=== PATIENT | male | born 1970 | race Caucasian/White ===

== ENCOUNTER → 2019-08-22 | Outpatient (CLI) | payer OTHER, MEDICARE ==
[2019-08-22 17:58] LABS: ALANINE AMINOTRANSFERASE 23 U/L (0-55); ALBUMIN 4.4 GM/DL (3.2-4.5); ALKALINE PHOSPHATASE 82 U/L (40-136); BILIRUBIN,TOTAL 0.4 MG/DL (0.1-1.0); BUN/CREATININE RATIO 13; CALCIUM 10.2 MG/DL (8.5-10.1); CARBON DIOXIDE 26 MMOL/L (21-32); CHLORIDE 93 MMOL/L (98-107); CREATININE SERUM 0.88 MG/DL (0.60-1.30); GFR ESTIMATED > 60; GLUCOSE 103 MG/DL (70-105); POTASSIUM 3.1 MMOL/L (3.6-5.0); SODIUM 135 MMOL/L (135-145); TOTAL PROTEIN 8.5 GM/DL (6.4-8.2)
[2019-08-22 17:59] LABS: HEMOGLOBIN 14.8 G/DL (13.3-17.7); MEAN CORPUSCULAR HEMOGLOBIN 29 PG (25-34); WHITE BLOOD COUNT 11.4 10^3/uL (4.3-11.0)
[2019-08-22 18:00] LABS: BASOPHILS # (AUTO) 0.1 10^3/uL (0.0-0.1); BASOPHILS % (AUTO) 1 % (0-10); EOSINOPHILS # (AUTO) 0.3 10^3/uL (0.0-0.3); EOSINOPHILS % (AUTO) 2 % (0-10); HEMATOCRIT 41 % (40-54); LYMPHOCYTES # (AUTO) 2.4 X 10^3 (1.0-4.0); LYMPHOCYTES % (AUTO) 21 % (12-44); MEAN CORPUSCULAR HGB CONC 36 G/DL (32-36); MEAN CORPUSCULAR VOLUME 81 FL (80-99); MEAN PLATELET VOLUME 8.8 FL (7.4-10.4); MONOCYTES # (AUTO) 0.8 X 10^3 (0.0-1.0); MONOCYTES % (AUTO) 7 % (0-12); NEUTROPHILS # (AUTO) 7.9 X 10^3 (1.8-7.8); NEUTROPHILS % (AUTO) 69 % (42-75); PLATELET COUNT 333 10^3/uL (130-400); RED CELL DISTRIBUTION WIDTH 12.1 % (10.0-14.5)
== END ==
LOC: LAB FS 16:26
PROVIDERS: ATTEND Nurse Practitioner Family
DX: E83.42 Hypomagnesemia (principal); R10.9 Unspecified abdominal pain
CPT/HCPCS: 36415; 80053; 83735; 85025

== ENCOUNTER → 2019-09-06 | Outpatient (CLI) | payer OTHER, MEDICARE ==
[2019-09-06 14:29] LABS: HEMOGLOBIN 13.7 G/DL (13.3-17.7); MEAN PLATELET VOLUME 8.9 FL (7.4-10.4); RED CELL DISTRIBUTION WIDTH 12.6 % (10.0-14.5); WHITE BLOOD COUNT 10.3 10^3/uL (4.3-11.0)
[2019-09-06 14:32] LABS: BILIRUBIN,URINE NEGATIVE (NEGATIVE); CLARITY,URINE CLEAR; COLOR,URINE YELLOW; GLUCOSE, URINE (UA) NEGATIVE (NEGATIVE); KETONES,URINE NEGATIVE (NEGATIVE); LEUKOCYTE ESTERASE ,URINE NEGATIVE (NEGATIVE); NITRITE,URINE NEGATIVE (NEGATIVE); PH,URINE 7.5 (5-9); PROTEIN,URINE NEGATIVE (NEGATIVE)
[2019-09-06 14:44] LABS: BACTERIA,URINE NEGATIVE /HPF; SQUAMOUS EPITHELIAL CELL,UR RARE /HPF
[2019-09-06 14:50] LABS: ALBUMIN 4.4 GM/DL (3.2-4.5); BUN/CREATININE RATIO 9; CALCIUM 9.7 MG/DL (8.5-10.1); CARBON DIOXIDE 26 MMOL/L (21-32); CHLORIDE 96 MMOL/L (98-107); CREATININE SERUM 0.88 MG/DL (0.60-1.30); GFR ESTIMATED > 60; GLUCOSE 102 MG/DL (70-105); MAGNESIUM 1.5 MG/DL (1.6-2.4); PHOSPHORUS 3.3 MG/DL (2.3-4.7); POTASSIUM 2.7 MMOL/L (3.6-5.0); SODIUM 136 MMOL/L (135-145); URIC ACID 4.8 MG/DL (2.6-7.2)
[2019-09-06 14:53] LABS: URINE CREATININE FOR RATIO 22 MG/DL (30-125); URINE PROTEIN FOR RATIO ONLY < 6 MG/DL (6-12)
--- NOTE | 2019-09-06 14:53 | Diagnostic Imaging Report ---
PROCEDURE: US Renal Bilateral. TECHNIQUE: Multiple real-time grayscale images were obtained over the kidneys in various projections bilaterally. INDICATION: Chronic kidney disease stage III. FINDINGS: Right kidney measures 11.4 x 6.1 x 6.9 cm and the left kidney measures 12.6 x 4.9 x 5.1 cm. Cortical thickness and echogenicity is normal. No calculi or hydronephrosis is seen. Prevoid bladder volume is 153 mL. Post void volume is 18 mL. Bilateral ureteral jets were visualized. IMPRESSION: Unremarkable renal and bladder ultrasound. Dictated by: Dictated on workstation # [id number]
[2019-09-06 14:56] LABS: PROTHROMBIN TIME PATIENT 13.6 SEC (12.2-14.7)
[2019-09-06 21:31] LABS: HEPATITIS C ANTIBODY C Non-Reactive (Non-Reactive)
== END ==
LOC: RAD 13:27
PROVIDERS: ATTEND Internal Medicine Nephrology
DX: N18.3 Chronic kidney disease, stage 3 (moderate) (principal); E87.70 Fluid overload, unspecified; N25.89 Other disorders resulting from impaired renal tubular function
CPT/HCPCS: 36415; 76770; 80069; 80074; 81000; 82306; 82570; 83036; 83735; 83970; 84156; 84550; 85027; 85610; 85652; 85730; 86021; 86038; 86039; 86141; 86160; 87088

== ENCOUNTER → 2019-09-20 | Outpatient (CLI) | payer OTHER, MEDICARE | LOC: RAD 13:00 | PROVIDERS: ATTEND Student in an Organized Health Care Education/Training Program | DX: R06.01 Orthopnea (principal) | CPT/HCPCS: 93306 ==

== ENCOUNTER → 2020-02-21 | Outpatient (CLI) | payer OTHER, MEDICARE ==
[2020-02-21 14:46] LABS: BASOPHILS # (AUTO) 0.1 10^3/uL (0.0-0.1); BASOPHILS % (AUTO) 1 % (0-10); EOSINOPHILS # (AUTO) 0.1 10^3/uL (0.0-0.3); EOSINOPHILS % (AUTO) 1 % (0-10); HEMATOCRIT 41 % (40-54); LYMPHOCYTES # (AUTO) 2.3 X 10^3 (1.0-4.0); LYMPHOCYTES % (AUTO) 23 % (12-44); MEAN CORPUSCULAR HEMOGLOBIN 29 PG (25-34); MEAN CORPUSCULAR HGB CONC 37 G/DL (32-36); MEAN CORPUSCULAR VOLUME 80 FL (80-99); MONOCYTES # (AUTO) 0.6 X 10^3 (0.0-1.0); MONOCYTES % (AUTO) 6 % (0-12); NEUTROPHILS # (AUTO) 6.9 X 10^3 (1.8-7.8); NEUTROPHILS % (AUTO) 69 % (42-75); PLATELET COUNT 308 10^3/uL (130-400); RED CELL DISTRIBUTION WIDTH 13.7 % (10.0-14.5)
[2020-02-21 14:47] LABS: BILIRUBIN,URINE NEGATIVE (NEGATIVE); CLARITY,URINE CLEAR; COLOR,URINE YELLOW; GLUCOSE, URINE (UA) NEGATIVE (NEGATIVE); KETONES,URINE NEGATIVE (NEGATIVE); LEUKOCYTE ESTERASE ,URINE NEGATIVE (NEGATIVE); NITRITE,URINE NEGATIVE (NEGATIVE); PROTEIN,URINE NEGATIVE (NEGATIVE)
[2020-02-21 14:53] LABS: BACTERIA,URINE NEGATIVE /HPF; WBC,URINE RARE /HPF
[2020-02-21 14:54] LABS: SQUAMOUS EPITHELIAL CELL,UR RARE /HPF
[2020-02-21 15:08] LABS: ALBUMIN 4.5 GM/DL (3.2-4.5); BUN/CREATININE RATIO 8; CALCIUM 9.3 MG/DL (8.5-10.1); CARBON DIOXIDE 26 MMOL/L (21-32); CHLORIDE 96 MMOL/L (98-107); CREATININE SERUM 0.96 MG/DL (0.60-1.30); GFR ESTIMATED > 60; GLUCOSE 103 MG/DL (70-105); PHOSPHORUS 2.7 MG/DL (2.3-4.7); SODIUM 134 MMOL/L (135-145); URIC ACID 5.6 MG/DL (2.6-7.2)
[2020-02-21 15:15] LABS: POTASSIUM 2.2 MMOL/L (3.6-5.0)
--- NOTE | 2020-02-21 16:27 | Diagnostic Imaging Report ---
EXAMINATION: PA and lateral chest at 02:55 p.m. INDICATION: Right-sided chest pain. FINDINGS: There are no prior studies available for comparison. The heart size is within normal limits. The lungs are clear. There is no evidence for failure, pneumonia, or for pleural effusion. There is blunting of the right costophrenic angle posteriorly. This may well be chronic in nature. If previous studies are available, they would be helpful for comparison. The mediastinum is noted. The osseous structures are intact. IMPRESSION: 1. There is no evidence for an acute cardiopulmonary abnormality. 2. The blunted appearance of the costophrenic angle on the right is most likely chronic in nature. If previous studies are available, they would be helpful for comparison. Dictated by: Dictated on workstation # [id number]
== END ==
LOC: RAD 14:23
PROVIDERS: ATTEND Internal Medicine Nephrology
DX: N17.9 Acute kidney failure, unspecified (principal); R80.9 Proteinuria, unspecified; E87.70 Fluid overload, unspecified; N25.89 Other disorders resulting from impaired renal tubular function; N18.3 Chronic kidney disease, stage 3 (moderate); E87.6 Hypokalemia; E83.42 Hypomagnesemia; R07.9 Chest pain, unspecified
CPT/HCPCS: 36415; 71046; 80069; 81000; 82306; 82570; 83970; 84156; 84550; 85025

== ENCOUNTER 2020-03-19 13:43 | Outpatient (CLI) | payer OTHER, MEDICARE ==
[~2020-03-19] VITALS: Ht 177.8 cm; Wt 112.3 kg
[2020-03-19 13:48] VITALS: BP 131/94
== END 2020-03-19 13:58 | disposition home or self-care (01) ==
LOC: SDC 13:43
PROVIDERS: ATTEND Internal Medicine Infectious Disease
DX: T80.219A Unspecified infection due to central venous catheter, initial encounter (principal)

== ENCOUNTER 2021-09-05 14:39 | Outpatient (RCR) | payer OTHER, MEDICARE ==
[2021-09-05 16:30] LABS: HEMATOCRIT 55 % (40-54); HEMOGLOBIN 18.5 g/dL (13.3-17.7); MEAN CORPUSCULAR HEMOGLOBIN 28 pg (25-34); MEAN CORPUSCULAR HGB CONC 34 g/dL (32-36); MEAN CORPUSCULAR VOLUME 81 fL (80-99); WHITE BLOOD COUNT 15.5 10^3/uL (4.3-11.0)
[2021-09-05 16:32] LABS: LYMPHOCYTES % (AUTO) 16 % (12-44); MEAN PLATELET VOLUME 9.1 fL (9.0-12.2); NEUTROPHILS % (AUTO) 75 % (42-75); PLATELET COUNT 445 10^3/uL (130-400)
[2021-09-05 16:33] LABS: BASOPHILS # (AUTO) 0.1 10^3/uL (0.0-0.1); BASOPHILS % (AUTO) 1 % (0-10); EOSINOPHILS # (AUTO) 0.1 10^3/uL (0.0-0.3); EOSINOPHILS % (AUTO) 1 % (0-10); LYMPHOCYTES # (AUTO) 2.5 X 10^3 (1.0-4.0); MONOCYTES # (AUTO) 1.2 X 10^3 (0.0-1.0); MONOCYTES % (AUTO) 8 % (0-12); NEUTROPHILS # (AUTO) 11.6 X 10^3 (1.8-7.8)
[2021-09-05 16:40] LABS: SODIUM 130 MMOL/L (135-145)
[2021-09-05 16:41] LABS: POTASSIUM 1.7 MMOL/L (3.6-5.0)
[2021-09-05 16:42] LABS: BUN/CREATININE RATIO 17; CARBON DIOXIDE 21 MMOL/L (21-32); CREATININE SERUM 0.87 MG/DL (0.60-1.30); GFR ESTIMATED 93
[2021-09-05 16:43] LABS: CALCIUM 10.4 MG/DL (8.5-10.1); GLUCOSE 162 MG/DL (70-105); MAGNESIUM 1.9 MG/DL (1.6-2.4)
[2021-09-05 16:44] LABS: ALANINE AMINOTRANSFERASE 36 U/L (0-55); ALBUMIN 4.9 GM/DL (3.2-4.5); ALKALINE PHOSPHATASE 108 U/L (40-136); BILIRUBIN,TOTAL 1.8 MG/DL (0.1-1.0); TOTAL PROTEIN 8.7 GM/DL (6.4-8.2)
[2021-09-05 16:45] LABS: CHLORIDE 89 MMOL/L (98-107)
[2021-09-05 17:01] LABS: LYMPHOCYTES % (MANUAL) 17 %; MONOCYTES % (MANUAL) 8 %; NEUTROPHILS % (MANUAL) 75 %; PLATELET ESTIMATE INCREASED; RBC MORPH NORMAL
[2021-09-05 17:02] LABS: ROULEAUX MOD
[2021-09-05] MEDS ORDERED: POTA-51 PO (19:05)
[2021-09-05] MEDS ORDERED: MAGN64TA8 (19:05)
[2021-09-08] MEDS ORDERED: SPIR25TA5 PO (11:31)
== END 2021-10-18 | disposition home or self-care (01) ==
LOC: LAB FS 14:39 → EDSTATUS 09-06 07:07
PROVIDERS: ATTEND Nurse Practitioner Family
DX: E83.42 Hypomagnesemia (principal); E87.6 Hypokalemia; R11.2 Nausea with vomiting, unspecified
CPT/HCPCS: 36415; 80053; 83735; 85007; 85027

== ENCOUNTER 2021-09-05 18:48 | Inpatient (IN) | payer OTHER, MEDICARE ==
[~2021-09-05] VITALS: Ht 177.8 cm; Wt 87.9 kg
[2021-09-05] MEDS ORDERED: POTA-51 PO (19:05)
[2021-09-05] MEDS ORDERED: MAGN64TA8 (19:05)
--- NOTE | 2021-09-05 19:19 | ED General ---
General Chief Complaint: General Problems/Pain Stated Complaint: LOW POTASSIUM LEVELS Nursing Triage Note: low potassium level, reports diarrhea since thursday, generalized weakness. Source of Information: Patient Exam Limitations: No Limitations History of Present Illness Date Seen by Provider: Sep 05, 2021 Time Seen by Provider: 19:05 Initial Comments Patient is a 51-year-old male who presents to the emergency department today with a chief complaint of acute nausea and vomiting since last Thursday. Patient has a history of Gitelman's syndrome. He has had multiple lines in his history and states that he really cannot do even central lines anymore. So he has been supplementing his potassium losses with oral potassium. He follows with Dr. Reinoso as his solution strategist. He states that since Thursday he has had some developing epigastric discomfort, likely related to all the vomiting that he has had. Has not had a bowel movement since last Thursday. Denies fevers chills, cough congestion. Denies Chest pain, shortness of breath, swelling. No sick contacts. He is not Covid vaccinated. He feels generally weak. He has been unable to hold down any of his medications throughout the week secondary to his nausea. He has been trying to sip on fluids but they come right back up. Denies blood in his vomit. No urinary complaints. Only prescribed medication the patient takes are Spironolactone and magnesium supplements. All other review of systems reviewed and negative except as stated. Timing/Duration: 1 Week Severity: Severe Associated Systoms: Loss of Appetite, Malaise, Nausea/Vomiting, Weakness Allergies and Home Medications Allergies Coded Allergies: adhesive tape (Verified Allergy, Unknown, 09/05/21) latex (Verified Allergy, Unknown, 09/05/21) Patient Home Medication List Home Medication List Reviewed: Yes Potassium Chloride (Potassium Chloride) 20 Meq Tablet.er, 80 MEQ PO TID, ( Reported) Entered as Reported by: IMCHELE PERLA on 09/05/211904 Last Action: Reviewed Discontinued Medications Magnesium Chloride (Mag64) 64 Mg Tablet.er, (Reported) Discontinued Reason: No Longer Taking Entered as Reported by: MICHELE PERLA on 09/05/211904 Last Action: Discontinued Review of Systems Review of Systems Constitutional: see HPI EENTM: no symptoms reported Respiratory: no symptoms reported Cardiovascular: no symptoms reported Gastrointestinal: abdominal pain, loss of appetite, nausea, vomiting Genitourinary: no symptoms reported Musculoskeletal: no symptoms reported Skin: no symptoms reported Psychiatric/Neurological: No Symptoms Reported All Other Systems Reviewed Negative Unless Noted: Yes Past Xftrnev-Kkbgab-Jccmql Hx Patient Social History Tobacco Use?: Yes Substance use?: No Alcohol Use?: No Pt feels they are or have been: No Past Medical History Surgery/Hospitalization HX: ch. kidney disease, low k+, multiple port placements Physical Exam Vital Signs Vital Signs - First Documented 09/05/21 18:56 Temp 36.0 Pulse 113 Resp 16 B/P (MAP) 152/104 (120) Pulse Ox 98 O2 Delivery Room Air Capillary Refill : Less Than 3 Seconds Height, Weight, BMI Height: '" Weight: lbs. oz. kg; 24.00 BMI Method: General Appearance: No Apparent Distress, WD/WN Eyes: Bilateral Eye Normal Inspection, Bilateral Eye PERRL, Bilateral Eye EOMI HEENT: Other (Dry oral mucosa) Neck: Normal Inspection Respiratory: Lungs Clear, Normal Breath Sounds, No Accessory Muscle Use, No Respiratory Distress Cardiovascular: Regular Rate, Rhythm, Normal Peripheral Pulses Gastrointestinal: Normal Bowel Sounds, Soft, Tenderness (Mild epigastric tenderness) Extremity: Normal Capillary Refill, Normal Inspection, Normal Range of Motion Neurologic/Psychiatric: Alert, Oriented x3, No Motor/Sensory Deficits, Normal 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, 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 Skin: Normal Color, Warm/Dry Progress/Results/Core Measures Suspected Sepsis SIRS Temperature: Pulse: 113 Respiratory Rate: 16 Laboratory Tests 09/05/21 19:32: White Blood Count 15.5H Blood Pressure 152 /104 Mean: 120 Laboratory Tests 09/05/21 19:32: Platelet Count 384, Total Bilirubin 1.9H Results/Orders Lab Results Laboratory Tests Test 09/05/21 19:32 Range/Units White Blood Count 15.5 H 4.3-11.0 10^3/uL Red Blood Count 5.65 H 4.30-5.52 10^6/uL Hemoglobin 17.9 H 13.3-17.7 g/dL Hematocrit 46 40-54 % Mean Corpuscular Volume 81 80-99 fL Mean Corpuscular Hemoglobin 32 25-34 pg Mean Corpuscular Hemoglobin Concent 39 H 32-36 g/dL Red Cell Distribution Width 12.5 10.0-14.5 % Platelet Count 384 130-400 10^3/uL Mean Platelet Volume 9.1 9.0-12.2 fL Immature Granulocyte % (Auto) 1 % Neutrophils (%) (Auto) 82 H 42-75 % Lymphocytes (%) (Auto) 11 L 12-44 % Monocytes (%) (Auto) 6 0-12 % Eosinophils (%) (Auto) 0 0-10 % Basophils (%) (Auto) 0 0-10 % Neutrophils # (Auto) 12.6 H 1.8-7.8 10^3/uL Lymphocytes # (Auto) 1.7 1.0-4.0 10^3/uL Monocytes # (Auto) 1.0 0.0-1.0 10^3/uL Eosinophils # (Auto) 0.0 0.0-0.3 10^3/uL Basophils # (Auto) 0.1 0.0-0.1 10^3/uL Immature Granulocyte # (Auto) 0.1 0.0-0.1 10^3/uL Neutrophils % (Manual) 83 % Lymphocytes % (Manual) 11 % Monocytes % (Manual) 6 % Blood Morphology Comment NORMAL Sodium Level 131 L 135-145 MMOL/L Potassium Level 1.5 *L 3.6-5.0 MMOL/L Chloride Level 93 L 98-107 MMOL/L Carbon Dioxide Level 19 L 21-32 MMOL/L Anion Gap 19 H 5-14 MMOL/L Blood Urea Nitrogen 16 7-18 MG/DL Creatinine 0.98 0.60-1.30 MG/DL Estimat Glomerular Filtration Rate 81 BUN/Creatinine Ratio 16 Glucose Level 157 H 70-105 MG/DL Calcium Level 10.4 H 8.5-10.1 MG/DL Corrected Calcium 8.5-10.1 MG/DL Magnesium Level 1.7 1.6-2.4 MG/DL Total Bilirubin 1.9 H 0.1-1.0 MG/DL Aspartate Amino Transf (AST/SGOT) 44 H 5-34 U/L Alanine Aminotransferase (ALT/SGPT) 35 0-55 U/L Alkaline Phosphatase 90 40-136 U/L Total Protein 8.6 H 6.4-8.2 GM/DL Albumin 4.6 H 3.2-4.5 GM/DL My Orders Orders - STAN RICK MD Ed Iv/Invasive Line Start (09/05/21 19:19) Cbc With Automated Diff (09/05/21 19:19) Comprehensive Metabolic Panel (09/05/21 19:19) Magnesium (09/05/21 19:19) Ekg Tracing (09/05/21 19:19) Ns Iv 1000 Ml (Sodium Chloride 0.9%) (09/05/21 19:45) Manual Differential (09/05/21 19:32) Ondansetron Injection (Zofran Injectio (09/05/21 19:45) Ed Admission (Communication) (09/05/21 20:09) Medications Given in ED Vital Signs/I&O 09/05/21 18:56 Temp 36.0 Pulse 113 Resp 16 B/P (MAP) 152/104 (120) Pulse Ox 98 O2 Delivery Room Air Capillary Refill : Less Than 3 Seconds Blood Pressure Mean: 120 ECG Initial ECG Impression Date: Sep 05, 2021 Initial ECG Impression Time: 19:22 Initial ECG Rate: 93 Initial ECG Rhythm: Normal Sinus Comment Diffuse ST depression/ "U waves" consistent with hypokalemia NC 131 QRS 99 Qtc 472 Critical Care Note Critical Care Start Time: 19:05 Stop Time: 20:04 Total Time (minutes) 30 minutes critical care time in the evaluation and management of this patient with critically low potassium; time includes intiial eval with review of the medical record, review and interpretation of labs, review of medial record, discussion with admitting provider and cardiology. Departure Communication (Admissions) Time/Spoke to Admitting Phy: 20:[address] Cole; requests ICU admission; consult to Dr Hart Time/Spoke to Consulting Phy: 20:[address] Hart, he will consult Impression Primary Impression: Hypokalemia Additional Impression: Gitelman disease Disposition: ADMITTED INPATIENT Condition: Critical Admissions Decision to Admit Reason: Admit from ER (General) Decision to Admit/Date: Sep 05, 2021 Time/Decision to Admit Time: 19:48 Departure-Patient Inst. Referrals: SAAD DAY APRN (PCP) Primary Care Physician [facility] (Family) Primary Care Physician STAN RICK MD Sep 05, 2021 19:19
[2021-09-05 19:37] LABS: BASOPHILS # (AUTO) 0.1 10^3/uL (0.0-0.1); BASOPHILS % (AUTO) 0 % (0-10); EOSINOPHILS % (AUTO) 0 % (0-10); HEMATOCRIT 46 % (40-54); HEMOGLOBIN 17.9 g/dL (13.3-17.7); LYMPHOCYTES # (AUTO) 1.7 10^3/uL (1.0-4.0); LYMPHOCYTES % (AUTO) 11 % (12-44); MEAN CORPUSCULAR HEMOGLOBIN 32 pg (25-34); MEAN CORPUSCULAR HGB CONC 39 g/dL (32-36); MEAN CORPUSCULAR VOLUME 81 fL (80-99); MEAN PLATELET VOLUME 9.1 fL (9.0-12.2); MONOCYTES % (AUTO) 6 % (0-12); NEUTROPHILS # (AUTO) 12.6 10^3/uL (1.8-7.8); NEUTROPHILS % (AUTO) 82 % (42-75); PLATELET COUNT 384 10^3/uL (130-400); WHITE BLOOD COUNT 15.5 10^3/uL (4.3-11.0)
[2021-09-05] MEDS ORDERED: NS IV 1000 ML 1,000 ML IV SCH (19:45)
[2021-09-05] MEDS ORDERED: ONDANSETRON 4 MG/2 ML (SDV) Z0FRAN IVP ONE (19:45)
[2021-09-05 20:10] LABS: LYMPHOCYTES % (MANUAL) 11 %; MONOCYTES % (MANUAL) 6 %; NEUTROPHILS % (MANUAL) 83 %; RBC MORPH NORMAL
[2021-09-05] MEDS ORDERED: POTASSIUM CL 10MEQ/50ML IVPB 50 ML IV ONE (20:15)
[2021-09-05 20:18] LABS: ALANINE AMINOTRANSFERASE 35 U/L (0-55); ALBUMIN 4.6 GM/DL (3.2-4.5); ALKALINE PHOSPHATASE 90 U/L (40-136); BILIRUBIN,TOTAL 1.9 MG/DL (0.1-1.0); BUN/CREATININE RATIO 16; CALCIUM 10.4 MG/DL (8.5-10.1); CARBON DIOXIDE 19 MMOL/L (21-32); CHLORIDE 93 MMOL/L (98-107); CREATININE SERUM 0.98 MG/DL (0.60-1.30); GFR ESTIMATED 81; GLUCOSE 157 MG/DL (70-105); MAGNESIUM 1.7 MG/DL (1.6-2.4); SODIUM 131 MMOL/L (135-145); TOTAL PROTEIN 8.6 GM/DL (6.4-8.2)
[2021-09-05 20:23] LABS: POTASSIUM 1.5 MMOL/L (3.6-5.0)
[2021-09-05] MEDS ORDERED: CALCIUM CARBONATE 500 MG (TUMS) TAB.CHEW PO PRN (21:15)
[2021-09-05] MEDS ORDERED: ONDANSETRON 4 MG/2 ML (SDV) Z0FRAN IVP PRN (21:15)
[2021-09-05] MEDS ORDERED: PROMETHAZINE INJ 25 MG/ML (PHENERGAN) AMP IM PRN (21:15)
[2021-09-05] MEDS ORDERED: SCOPOLAMINE 1.5 MG (TRANSDERM-SCOP) PATCH TD PRN (21:15)
[2021-09-05] MEDS ORDERED: fentaNYL INJ 100 MCG/2 ML AMP IVP PRN (21:15)
[2021-09-05] MEDS ORDERED: ONDANSETRON 4 MG (ZOFRAN) ORAL DISSOLVE TAB PO PRN (21:15)
[2021-09-05] MEDS ORDERED: DOCUSATE SODIUM 100 MG (COLACE) CAP PO PRN (21:15)
[2021-09-05] MEDS ORDERED: ACETAMINOPHEN 500 MG TAB (TYLENOL) PO PRN (21:15)
[2021-09-05] MEDS ORDERED: diphenhydrAMINE 25 MG TAB (BENADRYL) PO PRN (21:15)
[2021-09-05] MEDS ORDERED: LOPERAMIDE 2 MG (IMODIUM) TABLET PO PRN (21:15)
[2021-09-05] MEDS ORDERED: ALPRAZolam 0.25 MG (XANAX) TAB PO PRN (21:15)
[2021-09-05] MEDS ORDERED: MELATONIN 3 MG TABLET PO PRN (21:15)
[2021-09-05] MEDS ORDERED: POTASSIUM CL 10MEQ/50ML IVPB 400 ML IV ONE (21:26)
[2021-09-05] MEDS ORDERED: NS IV 1000 ML 1,000 ML ONE (21:27)
[2021-09-05] MEDS: POTASSIUM CL 10MEQ/50ML IVPB 50 ML IV SCH ×3 (21:34→23:52)
[2021-09-05] MEDS: NS IV 1000 ML 1,000 ML IV SCH (21:34)
--- NOTE | 2021-09-05 21:42 | Tele-ICU Progress Note ---
Progress Note 51M with Gittleman syndrome, chronic hypokalemia presented with 5 days n/v. Found to have K 1.5, diffuse ST depressions with u wave. Started on Kcl 80 meq. Nephro has been consulted and is managing hypoK. Focused Exam Height, Weight, BMI Height: '" Weight: lbs. oz. kg; 24.00 BMI Method: GLADYS REYES MD Sep 05, 2021 21:42
[2021-09-05] MEDS: ENOXAPARIN 40 MG/0.4 ML (LOVENOX) SYR SC SCH (21:49)
[2021-09-05] MEDS: HYDROcodone/APAP 5 MG/325 MG (LORTAB) TAB PO PRN (21:53)
[2021-09-05 23:23] VITALS: BP 152/104
[2021-09-05] MEDS ORDERED: RT-ALBUTEROL SULF 2.5 MG/3 ML PRE-MIX VIAL INH PRN (23:45)
[2021-09-06] MEDS: POTASSIUM CL 10MEQ/50ML IVPB 50 ML IV SCH ×14 (00:53→21:16)
[2021-09-06] MEDS ORDERED: RT-ALBUTEROL SULF 2.5 MG/3 ML PRE-MIX VIAL INH SCH (02:00)
[2021-09-06] MEDS: NS IV 1000 ML 1,000 ML IV SCH ×2 (03:14→08:13)
[2021-09-06 04:43] LABS: BASOPHILS # (AUTO) 0.1 10^3/uL (0.0-0.1); BASOPHILS % (AUTO) 1 % (0-10); EOSINOPHILS # (AUTO) 0.1 10^3/uL (0.0-0.3); EOSINOPHILS % (AUTO) 1 % (0-10); HEMATOCRIT 39 % (40-54); HEMOGLOBIN 14.7 g/dL (13.3-17.7); LYMPHOCYTES % (AUTO) 29 % (12-44); MEAN CORPUSCULAR HEMOGLOBIN 32 pg (25-34); MEAN CORPUSCULAR HGB CONC 38 g/dL (32-36); MEAN CORPUSCULAR VOLUME 83 fL (80-99); MEAN PLATELET VOLUME 9.4 fL (9.0-12.2); MONOCYTES # (AUTO) 0.9 10^3/uL (0.0-1.0); MONOCYTES % (AUTO) 9 % (0-12); NEUTROPHILS # (AUTO) 6.1 10^3/uL (1.8-7.8); NEUTROPHILS % (AUTO) 60 % (42-75); PLATELET COUNT 270 10^3/uL (130-400); WHITE BLOOD COUNT 10.2 10^3/uL (4.3-11.0)
[2021-09-06 05:05] LABS: ALBUMIN 3.8 GM/DL (3.2-4.5); BILIRUBIN,TOTAL 1.9 MG/DL (0.1-1.0); CALCIUM 8.8 MG/DL (8.5-10.1); CREATININE SERUM 0.81 MG/DL (0.60-1.30); PHOSPHORUS 2.6 MG/DL (2.3-4.7); TOTAL PROTEIN 6.8 GM/DL (6.4-8.2)
[2021-09-06 05:15] LABS: POTASSIUM 1.7 MMOL/L (3.6-5.0)
[2021-09-06] MEDS ORDERED: KCL 20 MEQ TAB (K-DUR) PO SCH (06:00)
[2021-09-06] MEDS ORDERED: POTASSIUM CL 10MEQ/50ML IVPB 50 ML IV SCH (06:00)
[2021-09-06] MEDS ORDERED: MAGNESIUM 1 GM/100 ML IVPB 100 ML IV SCH (06:00)
--- NOTE | 2021-09-06 07:52 | Tele-ICU Progress Note ---
Subjective Date Seen by a Provider: Sep 06, 2021 Time Seen by a Provider: 09:28 Subjective/Events-last exam 51 yo M with Gitelman's syndrome, came to ED with vomiting, unable to take any potassium supplements. Initial potassium was 1.5, Receiving replacement and last value was 1.7. Magnesium and calcium are normal. Initial Hb 17.9 suggesting dehydration. Getting IV saline, also potassium and calcium supplements Has problems with IV access. Weak but able to get out of bed Review of Systems General: No Chills, No Night Sweats, No Fatigue, No Malaise Sepsis Event Evaluation Height, Weight, BMI Height: '" Weight: lbs. oz. kg; 24.83 BMI Method: Exam Exam Patient acknowledged, consented, and participated in this virtual visit which was conducted using real time audio/video Vital Signs Date Time Temp Pulse Resp B/P (MAP) Pulse Ox O2 Delivery O2 Flow Rate FiO2 09/06/21 06:00 56 97/59 98 Room Air 09/06/21 05:00 54 83/49 97 Room Air 09/06/21 04:00 99 Room Air 09/06/21 04:00 59 105/55 99 Room Air 09/06/21 03:00 51 105/68 97 Room Air 09/06/21 02:00 59 18 93/46 100 Room Air 09/06/21 01:00 60 82/50 99 Room Air 09/06/21 01:00 60 09/06/21 00:00 36.6 09/06/21 00:00 92 117/68 99 Room Air 09/05/21 23:59 99 Room Air 09/05/21 23:23 36.0 113 98 21 09/05/21 23:00 72 106/57 100 Room Air 09/05/21 22:00 70 116/100 100 Room Air 09/05/21 21:23 70 09/05/21 21:00 36.3 79 16 136/90 99 Room Air 09/05/21 20:34 36.1 82 13 142/96 96 Room Air 09/05/21 18:56 36.0 113 16 152/104 (120) 98 Room Air I & O 09/06/21 07:00 Intake Total 1200 ml Output Total 950 ml Balance 250 ml Height & Weight Height: '" Weight: lbs. oz. 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
[2021-09-06] MEDS ORDERED: KCL 20 MEQ TAB (K-DUR) PO ONE ×2 (08:00→09:15)
[2021-09-06] MEDS: HYDROcodone/APAP 5 MG/325 MG (LORTAB) TAB PO PRN (08:24)
[2021-09-06] MEDS ORDERED: PANTOPRAZOLE 40 MG (PROTONIX) VIAL IV SCH (09:00)
--- NOTE | 2021-09-06 09:30 | Consultation-Cardiology ---
HPI-Cardiology Cardiology Consultation: Date of Consultation 09/06/2021 Date of Admission 09/05/2021 Attending Physician Priya Cole DO Admitting Physician Elba Arce Aprn Consulting Physician LANDRY LEYVA JR, MD HPI: Time Seen by a Provider: 09:29 Chief Complaint: Reason for consultation: Abnormal electrocardiogram in the setting of severe hypokalemia. I had the pleasure of seeing Tavo in the intensive care unit at [facility] in [place], [place] this morning. 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 He is followed by a local sales manager in [place], [place]. For the past couple of days he has been having nausea and vomiting. He was not able to keep his potassium down or much in the way of food or liquids. Due to the ongoing nausea and vomiting, he came to the emergency room yesterday for further evaluation. He was found to have severe, recurrent hypokalemia and was admitted to the intensive care unit for further treatment. He still has some slight nausea but the vomiting is improving. He did have some chest tightness and abdominal pain from the vomiting. He denies any diarrhea. Sometimes when his potassium gets low, he will feel a tightness in his chest. This is chronic and unchanged. He denies dyspnea, paroxysmal nocturnal dyspnea, or orthopnea. He had some lightheaded spells yesterday due to dehydration but denies any syncope. He denies any palpitations or lower extremity edema. Certain portions of this document may have been dictated utilizing voice recognition technology. Inherent to this technology, typographical and grammati aliya errors may exist. As much as I am diligent to identify and correct these mistakes, some errors may remain in the document. Review of Systems-Cardiology Review of Systems Other comments Review of 10 organ systems is as per the history of present illness, otherwise negative. All Other Systems Reviewed Negative Unless Noted: Yes PXN-Muhpyu-Mccauz Hx Patient Social History Have you traveled recently?: No Alcohol Use?: No Pt feels they are or have been: No Past Medical History PMH As described under Assessment. Family Medical History Family Medical History: The patient does not know of any family history of premature coronary artery disease in first-degree relatives. Allergies and Home Medications Allergies Coded Allergies: adhesive tape (Verified Allergy, Unknown, 09/05/21) latex (Verified Allergy, Unknown, 09/05/21) Patient Home Medication List Home Medication List Reviewed: Yes Potassium Chloride (Potassium Chloride) 20 Meq Tablet.er, 80 MEQ PO TID, (Reported) Entered as Reported by: MICHELE PERLA on 09/05/211904 Last Action: Reviewed Discontinued Medications Magnesium Chloride (Mag64) 64 Mg Tablet.er, (Reported) Discontinued Reason: No Longer Taking Entered as Reported by: MICHELE PERLA on 09/05/211904 Last Action: Discontinued Exam Vital Signs Vital Signs Date Time Temp Pulse Resp B/P (MAP) Pulse Ox O2 Delivery O2 Flow Rate FiO2 09/06/21 11:33 35.7 09/06/21 10:00 59 22 107/69 99 Room Air 09/05/21 23:23 21 Physical Exam General: Alert. No acute distress. Well nourished and appears stated age. Eye: Extraocular movements are intact. Conjunctivae are clear. There are no xanthelasma. HENT: Normocephalic. Atraumatic. Carotid pulsations 2/2 without bruits. Neck: Jugular venous pressure does not appear elevated. No thyromegaly appreciated. Respiratory: Lungs are clear to auscultation. Respirations are non-labored. Breath sounds are equal. Symmetrical chest wall expansion. Cardiovascular: Normal rate. Regular rhythm. No murmur. No gallop. Point of maximal impulse is not appear displaced. Good pulses equal in all extremities. No edema. Gastrointestinal: Soft. Normal bowel sounds. Skin: Skin turgor is normal. There is no pallor. Musculoskeletal: No kyphosis or scoliosis appreciated. Neurologic: Alert and oriented to person, place, time. Cranial nerves 3-12 appear grossly intact. The patient has good motor tone strength in the upper and lower extremities bilaterally. Psychiatric: Cooperative. Appropriate mood & affect. Labs Laboratory Tests Test 09/05/21 19:32 09/06/21 04:23 09/06/21 12:49 Range/Units White Blood Count 15.5 H 10.2 4.3-11.0 10^3/uL Red Blood Count 5.65 H 4.65 4.30-5.52 10^6/uL Hemoglobin 17.9 H 14.7 13.3-17.7 g/dL Hematocrit 46 39 L 40-54 % Mean Corpuscular Volume 81 83 80-99 fL Mean Corpuscular Hemoglobin 32 32 25-34 pg Mean Corpuscular Hemoglobin Concent 39 H 38 H 32-36 g/dL Red Cell Distribution Width 12.5 12.7 10.0-14.5 % Platelet Count 384 270 130-400 10^3/uL Mean Platelet Volume 9.1 9.4 9.0-12.2 fL Immature Granulocyte % (Auto) 1 0 % Neutrophils (%) (Auto) 82 H 60 42-75 % Lymphocytes (%) (Auto) 11 L 29 12-44 % Monocytes (%) (Auto) 6 9 0-12 % Eosinophils (%) (Auto) 0 1 0-10 % Basophils (%) (Auto) 0 1 0-10 % Neutrophils # (Auto) 12.6 H 6.1 1.8-7.8 10^3/uL Lymphocytes # (Auto) 1.7 3.0 1.0-4.0 10^3/uL Monocytes # (Auto) 1.0 0.9 0.0-1.0 10^3/uL Eosinophils # (Auto) 0.0 0.1 0.0-0.3 10^3/uL Basophils # (Auto) 0.1 0.1 0.0-0.1 10^3/uL Immature Granulocyte # (Auto) 0.1 0.0 0.0-0.1 10^3/uL Neutrophils % (Manual) 83 % Lymphocytes % (Manual) 11 % Monocytes % (Manual) 6 % Blood Morphology Comment NORMAL Sodium Level 131 L 133 L 135-145 MMOL/L Potassium Level 1.5 *L 1.7 *L 3.6-5.0 MMOL/L Chloride Level 93 L 97 L 98-107 MMOL/L Carbon Dioxide Level 19 L 18 L 21-32 MMOL/L Anion Gap 19 H 18 H 5-14 MMOL/L Blood Urea Nitrogen 16 15 7-18 MG/DL Creatinine 0.98 0.81 0.60-1.30 MG/DL Estimat Glomerular Filtration Rate 81 101 BUN/Creatinine Ratio 16 19 Glucose Level 157 H 109 H 70-105 MG/DL Calcium Level 10.4 H 8.8 8.5-10.1 MG/DL Corrected Calcium 9.0 8.5-10.1 MG/DL Magnesium Level 1.7 2.0 1.6-2.4 MG/DL Total Bilirubin 1.9 H 1.9 H 0.1-1.0 MG/DL Aspartate Amino Transf (AST/SGOT) 44 H 36 H 5-34 U/L Alanine Aminotransferase (ALT/SGPT) 35 28 0-55 U/L Alkaline Phosphatase 90 69 40-136 U/L Total Protein 8.6 H 6.8 6.4-8.2 GM/DL Albumin 4.6 H 3.8 3.2-4.5 GM/DL Phosphorus Level 2.6 2.3-4.7 MG/DL Radiology ECHOCARDIOGRAM (09/06/2021): 1. Left ventricle: The cavity size is normal. Wall thickness is normal. Systolic function is normal. The estimated ejection fraction is 55-60%. There were no regional wall motion abnormalities identified. Left ventricular diastolic fun ction parameters are normal. 2. Pulmonary arteries: The pulmonary artery pressure cannot be estimated on this study due to inadequate tricuspid regurgitant envelope. ECG Impression ECG Comment Sinus bradycardia with prolonged QT. Diagnosis/Problems Diagnosis/Problems (1) Abnormal ECG Assessment & Plan: He has sinus bradycardia with prolonged QT. This is most likely related to the hypokalemia. His echocardiogram is unremarkable. As the potassium level is corrected, the electrocardiogram should normalize. He does not necessarily need any additional cardiac testing at this point in time. (2) Hypokalemia Status: Acute Assessment & Plan: As above, this is probably causing the abnormality on his electrocardiogram. I would recommend he continue on telemetry until his potassium level has normalized. LANDRY LEYVA JR, MD Sep 06, 2021 09:30
--- NOTE | 2021-09-06 09:55 | History & Physical-Hospitalist ---
History of Present Illness HPI/Chief Complaint CC: N/V and hypokalemia HPI: This is a 51yoWM with h/o Gitelman's disease managed by Nephrology who presented to the ER with N/V and inability to maintain the enormous amount of potassium he must take. Potassium was 1.7. Patient will need close monitoring while replacing. ST changes noted so Cardiology will be consulted and he will be on Tely. Source: patient Exam Limitations: no limitations Date Seen 09/06/21 Time Seen by a Provider: 10:00 Attending Physician Priya Cole DO PCP Elba Arce Aprn Referring Physician Date of Admission Sep 05, 2021 at 20:10 Home Medications & Allergies Home Medications Reviewed patient Home Medication Reconciliation performed by pharmacy medication reconciliations auto technician and/or nursing. Patients Allergies have been reviewed. Allergies Allergies Coded Allergies adhesive tape (Verified Allergy, Unknown, 09/05/21) latex (Verified Allergy, Unknown, 09/05/21) Past Riwbell-Lzkyrv-Eixnqn Hx Patient Social History Marrital Status: single Employed/Student: unemployed Tobacco Use?: No Smoking Status: Never a Smoker Substance use?: No Alcohol Use?: No Pt feels they are or have been: No Immunizations Up To Date Tetanus Booster (TDap): Unknown Current Status Advance Directives: No Communicates: Verbally Primary Language: Estonian Preferred Spoken Language: Estonian Is interpretation needed?: No Review of Systems Constitutional: see HPI, malaise, weakness EENTM: no symptoms reported Respiratory: no symptoms reported Cardiovascular: no symptoms reported Gastrointestinal: loss of appetite, nausea, vomiting Genitourinary: no symptoms reported Musculoskeletal: no symptoms reported Skin: no symptoms reported Psychiatric/Neurological: No Symptoms Reported All Other Systems Reviewed Negative Unless Noted: Yes Physical Exam Physical Exam Vital Signs Vital Signs - First Documented 09/05/21 09/05/21 18:56 23:23 Temp 36.0 Pulse 113 Resp 16 B/P (MAP) 152/104 (120) Pulse Ox 98 O2 Delivery Room Air FiO2 21 Capillary Refill : Less Than 3 Seconds Height, Weight, BMI Height: '" Weight: lbs. oz. kg; 24.83 BMI Method: General Appearance: No Apparent Distress Eyes: Right Eye Normal Inspection, Right Eye PERRL HEENT: PERRL/EOMI, Normal ENT Inspection, Pharynx Normal, Moist Mucous Membranes Neck: Full Range of Motion, Normal Inspection, Non Tender Respiratory: Chest Non Tender, Lungs Clear, Normal Breath Sounds, No Accessory Muscle Use, No Respiratory Distress Cardiovascular: Regular Rate, Rhythm, No Edema, No Gallop, No JVD, No Murmur, Normal Peripheral Pulses Gastrointestinal: Normal Bowel Sounds, No Organomegaly, No Pulsatile Mass, Non Tender, Soft Back: Normal Inspection, No CVA Tenderness, No Vertebral Tenderness Extremity: Normal Capillary Refill, Normal Inspection, Normal Range of Motion, Non Tender, No Calf Tenderness, No Pedal Edema Neurologic/Psychiatric: Alert, Oriented x3, No Motor/Sensory Deficits, Normal Mood/Affect Skin: Normal Color, Warm/Dry Lymphatic: No Adenopathy Results Results/Procedures Labs Laboratory Tests 09/05/21 19:32 09/06/21 04:23 09/06/21 12:49 Patient resulted labs reviewed. Assessment/Plan Admission Diagnosis Assessment: Severe hypokalemia Gitelman Disease N/V Plan: Aggressive potassium supplement Admission Status: Inpatient Order (span 2 midnights) Reason for Inpatient Admission: severe hypokalemia PRIYA COLE DO Sep 06, 2021 09:55
[2021-09-06] MEDS: KCL 20 MEQ TAB (K-DUR) PO SCH ×9 (10:09→23:16)
[2021-09-06] MEDS ORDERED: RT-ALBUTEROL SULF 2.5 MG/3 ML PRE-MIX VIAL INH PRN (11:00)
[2021-09-06 13:35] LABS: CALCIUM 9.3 MG/DL (8.5-10.1); CREATININE SERUM 0.8 MG/DL (0.60-1.30)
[2021-09-06 13:37] LABS: POTASSIUM 1.8 MMOL/L (3.6-5.0)
[2021-09-06] MEDS ORDERED: NS IV 1000 ML 1,000 ML ONE (14:03)
[2021-09-06] MEDS: ENOXAPARIN 40 MG/0.4 ML (LOVENOX) SYR SC SCH (20:09)
[2021-09-07] MEDS: KCL 20 MEQ TAB (K-DUR) PO SCH ×12 (02:00→22:55)
[2021-09-07 06:30] LABS: BASOPHILS % (AUTO) 1 % (0-10); EOSINOPHILS # (AUTO) 0.1 10^3/uL (0.0-0.3); EOSINOPHILS % (AUTO) 2 % (0-10); HEMATOCRIT 36 % (40-54); HEMOGLOBIN 13.3 g/dL (13.3-17.7); LYMPHOCYTES % (AUTO) 42 % (12-44); MEAN CORPUSCULAR HEMOGLOBIN 32 pg (25-34); MEAN CORPUSCULAR HGB CONC 38 g/dL (32-36); MEAN CORPUSCULAR VOLUME 84 fL (80-99); MEAN PLATELET VOLUME 9.5 fL (9.0-12.2); MONOCYTES # (AUTO) 0.5 10^3/uL (0.0-1.0); MONOCYTES % (AUTO) 7 % (0-12); NEUTROPHILS # (AUTO) 3.4 10^3/uL (1.8-7.8); NEUTROPHILS % (AUTO) 48 % (42-75); PLATELET COUNT 202 10^3/uL (130-400); WHITE BLOOD COUNT 7.1 10^3/uL (4.3-11.0)
[2021-09-07 06:33] LABS: ALBUMIN 3.6 GM/DL (3.2-4.5)
[2021-09-07 06:34] LABS: CALCIUM 8.4 MG/DL (8.5-10.1)
[2021-09-07 06:35] LABS: TOTAL PROTEIN 6.5 GM/DL (6.4-8.2)
[2021-09-07 06:37] LABS: BILIRUBIN,TOTAL 1.2 MG/DL (0.1-1.0)
[2021-09-07 06:39] LABS: CREATININE SERUM 0.75 MG/DL (0.60-1.30)
[2021-09-07 06:42] LABS: POTASSIUM 2.5 MMOL/L (3.6-5.0)
[2021-09-07] MEDS ORDERED: POTASSIUM CL 10MEQ/50ML IVPB 50 ML IV ONE ×3 (06:58→22:54)
[2021-09-07] MEDS: POTASSIUM CL 10MEQ/50ML IVPB 50 ML IV SCH ×12 (06:59→22:56)
[2021-09-07] MEDS: PANTOPRAZOLE 40 MG (PROTONIX) TAB PO SCH (08:26)
--- NOTE | 2021-09-07 11:13 | Progress Note - Hospitalist ---
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 Potassium was 1.7. Patient will need close monitoring while replacing. ST changes noted so Cardiology will be consulted and he will be on Tely. Subjective/Events-last exam Patient doing much better Tolerating oral potassium Check meds and labs Review of Systems General: Fatigue Objective Exam Vital Signs Vital Signs Date Time Temp Pulse Resp B/P (MAP) Pulse Ox O2 Delivery O2 Flow Rate FiO2 09/08/21 04:20 36.2 71 18 108/68 96 Room Air 09/05/21 23:23 21 Capillary Refill : Less Than 3 Seconds General Appearance: No Apparent Distress, WD/WN, Chronically ill Respiratory: Lungs Clear Cardiovascular: Regular Rate, Rhythm Neurologic/Psychiatric: Alert, Oriented x3, No Motor/Sensory Deficits, Normal Mood/Affect Results/Procedures Lab Laboratory Tests 09/08/21 05:44 Patient resulted labs reviewed. Assessment/Plan Assessment and Plan Assess & Plan/Chief Complaint Assessment: Severe hypokalemia Gitelman Disease N/V Plan: Aggressive potassium supplement 09/07/2021: Aggressive potassium supplement Critical Care Critically Ill Patient GERTRUDIS MARCELINO DO Sep 07, 2021 11:13
[2021-09-07] MEDS ORDERED: NS IV 1000 ML 1,000 ML ONE (13:08)
[2021-09-07] MEDS ORDERED: SPIRONOLACTONE 25 MG (ALDACTONE) TAB PO NR (15:15)
--- NOTE | 2021-09-07 15:19 | Cardiology Progress Note ---
Progress Note-Cardiology Events since last exam Date Seen by Provider: Sep 07, 2021 Time Seen by Provider: 15:17 Events since last exam I am following him due to an abnormal electrocardiogram in the setting of severe hypokalemia. He has been transferred to the medical floor. He denies chest pain, dyspnea, palpitations, syncope, or ankle edema. He reports that he had not been taking spironolactone prior to admission because he was having an issue with getting this from his pharmacy. He also was not taking magnesium. He was still taking his potassium but with his nausea and vomiting, had not been keepi ng this down. Certain portions of this document may have been dictated utilizing voice recognition technology. Inherent to this technology, typographical and grammatical errors may exist. As much as I am diligent to identify and correct these mistakes, some errors may remain in the document. Vitals Last set of Vitals Signs Vital Signs 09/05/21 09/07/21 09/07/21 23:23 11:49 12:51 Temp 36.5 Pulse 73 Resp 20 B/P (MAP) 109/71 Pulse Ox 98 O2 Delivery Room Air FiO2 21 Labs Labs Laboratory Tests 09/07/21 05:30 09/07/21 05:38 Exam Vital Signs Vital Signs Date Time Temp Pulse Resp B/P (MAP) Pulse Ox O2 Delivery O2 Flow Rate FiO2 09/07/21 12:51 73 09/07/21 11:49 36.5 20 109/71 98 Room Air 09/05/21 23:23 21 Physical Exam General: Alert. No acute distress. Eye: No xanthelasma. HENT: Normocephalic. Neck: Jugular venous pressure does not appear elevated. Respiratory: Lungs are clear to auscultation. Respirations are non-labored. Breath sounds are equal. Symmetrical chest wall expansion. Cardiovascular: Normal rate. Regular rhythm. No murmur. No gallop. No edema. Gastrointestinal: Soft. Normal bowel sounds. Skin: Warm. Dry. Neurologic: Alert and oriented to person, place, time. Cranial nerves 3-11 grossly intact. Psychiatric: Cooperative. Appropriate mood & affect. Labs Laboratory Tests Test 09/07/21 05:30 09/07/21 05:38 Range/Units White Blood Count 7.1 4.3-11.0 10^3/uL Red Blood Count 4.22 L 4.30-5.52 10^6/uL Hemoglobin 13.3 13.3-17.7 g/dL Hematocrit 36 L 40-54 % Mean Corpuscular Volume 84 80-99 fL Mean Corpuscular Hemoglobin 32 25-34 pg Mean Corpuscular Hemoglobin Concent 38 H 32-36 g/dL Red Cell Distribution Width 13.2 10.0-14.5 % Platelet Count 202 130-400 10^3/uL Mean Platelet Volume 9.5 9.0-12.2 fL Immature Granulocyte % (Auto) 0 % Neutrophils (%) (Auto) 48 42-75 % Lymphocytes (%) (Auto) 42 12-44 % Monocytes (%) (Auto) 7 0-12 % Eosinophils (%) (Auto) 2 0-10 % Basophils (%) (Auto) 1 0-10 % Neutrophils # (Auto) 3.4 1.8-7.8 10^3/uL Lymphocytes # (Auto) 3.0 1.0-4.0 10^3/uL Monocytes # (Auto) 0.5 0.0-1.0 10^3/uL Eosinophils # (Auto) 0.1 0.0-0.3 10^3/uL Basophils # (Auto) 0.0 0.0-0.1 10^3/uL Immature Granulocyte # (Auto) 0.0 0.0-0.1 10^3/uL Sodium Level 135 135-145 MMOL/L Potassium Level 2.5 *L 3.6-5.0 MMOL/L Chloride Level 102 98-107 MMOL/L Carbon Dioxide Level 21 21-32 MMOL/L Anion Gap 12 5-14 MMOL/L Blood Urea Nitrogen 7 7-18 MG/DL Creatinine 0.75 0.60-1.30 MG/DL Estimat Glomerular Filtration Rate 110 BUN/Creatinine Ratio 9 Glucose Level 97 70-105 MG/DL Calcium Level 8.4 L 8.5-10.1 MG/DL Corrected Calcium 8.7 8.5-10.1 MG/DL Total Bilirubin 1.2 H 0.1-1.0 MG/DL Aspartate Amino Transf (AST/SGOT) 38 H 5-34 U/L Alanine Aminotransferase (ALT/SGPT) 24 0-55 U/L Alkaline Phosphatase 60 40-136 U/L Total Protein 6.5 6.4-8.2 GM/DL Albumin 3.6 3.2-4.5 GM/DL Diagnosis/Problems Diagnosis/Problems (1) Abnormal ECG Assessment & Plan: He had sinus bradycardia with prolonged QT. This is most likely related to the hypokalemia. His echocardiogram from 09/06 was unremarkable. As the potassium level has been corrected, his heart rates have improved. He does not necessarily need any additional cardiac testing at this point in time. (2) Hypokalemia Status: Acute Assessment & Plan: As above, this is probably causing the abnormality on his electrocardiogram. 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 The primary hospitalist has ordered intravenous potassium. I will restart his oral magnesium and spironolactone. I would recommend he continue on telemetry until his potassium level has normalized. LANDRY LEYVA JR, MD Sep 07, 2021 15:19
[2021-09-07] MEDS: MAGNESIUM OXIDE (MAG-OX)400 MG TAB PO SCH (15:34)
[2021-09-07] MEDS: ENOXAPARIN 40 MG/0.4 ML (LOVENOX) SYR SC SCH (20:09)
[2021-09-08] MEDS: KCL 20 MEQ TAB (K-DUR) PO SCH ×5 (02:06→09:59)
[2021-09-08 05:53] LABS: BASOPHILS # (AUTO) 0.1 10^3/uL (0.0-0.1); BASOPHILS % (AUTO) 1 % (0-10); EOSINOPHILS # (AUTO) 0.2 10^3/uL (0.0-0.3); EOSINOPHILS % (AUTO) 3 % (0-10); HEMATOCRIT 35 % (40-54); HEMOGLOBIN 13.1 g/dL (13.3-17.7); LYMPHOCYTES % (AUTO) 45 % (12-44); MEAN CORPUSCULAR HEMOGLOBIN 32 pg (25-34); MEAN CORPUSCULAR HGB CONC 38 g/dL (32-36); MEAN CORPUSCULAR VOLUME 85 fL (80-99); MEAN PLATELET VOLUME 9.4 fL (9.0-12.2); MONOCYTES # (AUTO) 0.5 10^3/uL (0.0-1.0); MONOCYTES % (AUTO) 8 % (0-12); NEUTROPHILS # (AUTO) 2.9 10^3/uL (1.8-7.8); NEUTROPHILS % (AUTO) 44 % (42-75); PLATELET COUNT 154 10^3/uL (130-400); WHITE BLOOD COUNT 6.8 10^3/uL (4.3-11.0)
[2021-09-08 06:05] LABS: ALBUMIN 3.7 GM/DL (3.2-4.5); POTASSIUM 3.7 MMOL/L (3.6-5.0)
[2021-09-08 06:07] LABS: CALCIUM 8.8 MG/DL (8.5-10.1)
[2021-09-08 06:08] LABS: TOTAL PROTEIN 6.3 GM/DL (6.4-8.2)
[2021-09-08 06:10] LABS: BILIRUBIN,TOTAL 0.4 MG/DL (0.1-1.0)
[2021-09-08 06:11] LABS: CREATININE SERUM 0.7 MG/DL (0.60-1.30)
[2021-09-08] MEDS: POTASSIUM CL 10MEQ/50ML IVPB 50 ML IV SCH ×4 (07:08→11:11)
[2021-09-08] MEDS: PANTOPRAZOLE 40 MG (PROTONIX) TAB PO SCH (08:02)
[2021-09-08] MEDS: MAGNESIUM OXIDE (MAG-OX)400 MG TAB PO SCH (08:02)
[2021-09-08] MEDS ORDERED: SPIRONOLACTONE 25 MG (ALDACTONE) TAB PO SCH (09:00)
[2021-09-08] MEDS ORDERED: SPIR25TA5 PO (11:31)
--- NOTE | 2021-09-08 11:32 | Discharge Summary ---
Discharge Summary Hospital Course Was the Problem List Reviewed?: Yes Problems/Dx: (1) Abnormal ECG (2) Hypokalemia Status: Acute Hospital Course Date of Admission: Sep 05, 2021 at 20:10 Admission Diagnosis : Family Physician/Provider: [place] Date of Discharge: 09/08/21 Discharge Diagnosis: Hypokalemia severe, nausea vomiting, Gintelman syndrome Hospital Course: Uneventful course after he was admitted to the ICU with cardiology consult with ST changes due to severe hypokalemia. Aggressive IV and p.o. supplement of potassium was successful and ultimately increased to normal. Patient was discharged in uneventful status. Labs and Pending Lab Test: Laboratory Tests 09/08/21 05:44: White Blood Count 6.8, Red Blood Count 4.08L, Hemoglobin 13.1L, Hematocrit 35L, Mean Corpuscular Volume 85, Mean Corpuscular Hemoglobin 32, Mean Corpuscular Hemoglobin Concent 38H, Red Cell Distribution Width 13.1, Platelet Count 154, Mean Platelet Volume 9.4, Immature Granulocyte % (Auto) 0, Neutrophils (%) (Auto) 44, Lymphocytes (%) (Auto) 45H, Monocytes (%) (Auto) 8, Eosinophils (%) (Auto) 3, Basophils (%) (Auto) 1, Neutrophils # (Auto) 2.9, Lymphocytes # (Auto) 3.0, Monocytes # (Auto) 0.5, Eosinophils # (Auto) 0.2, Basophils # (Auto) 0.1, Immature Granulocyte # (Auto) 0.0, Sodium Level 132L, Potassium Level 3.7, Chloride Level 103, Carbon Dioxide Level 19L, Anion Gap 10, Blood Urea Nitrogen 3L, Creatinine 0.70, Estimat Glomerular Filtration Rate 119, BUN/Creatinine Ratio 4, Glucose Level 94, Calcium Level 8.8, Corrected Calcium 9.0, Total Bilirubin 0.4, Aspartate Amino Transf (AST/SGOT) 35H, Alanine Aminotransferase (ALT/SGPT) 22, Alkaline Phosphatase 61, Total Protein 6.3L, Albumin 3.7 Home Meds Active Spironolactone 25 Mg Tablet 25 Mg PO DAILY Reported Potassium Chloride 20 Meq Tablet.er 80 Meq PO TID LAST FILLED 05/09/2021 #360 30 DAY SUPPLY TAKES 4 (20MEQ) TABLETS Assessment/Pt Instructions [facility] in 1 week Discharge Planning: <30 minutes discharge planning Discharge Instructions Discharge Diet: No Restrictions Activity as Tolerated: Yes Discharge Physical Examination Vital Signs Vital Signs Date Time Temp Pulse Resp B/P (MAP) Pulse Ox O2 Delivery O2 Flow Rate FiO2 09/08/21 08:05 99 Room Air 09/08/21 07:45 36.1 66 20 100/64 09/05/21 23:23 21 General Appearance: No Apparent Distress, WD/WN, Chronically ill Allergies: Coded Allergies: adhesive tape (Verified Allergy, Unknown, 09/05/21) latex (Verified Allergy, Unknown, 09/05/21) Discharge Summary Date of Admission Sep 05, 2021 at 20:10 Date of Discharge Discharge Date: Sep 08, 2021 Admission Diagnosis Assessment: Severe hypokalemia Gitelman Disease N/V Plan: Aggressive potassium supplement Discharge Diagnosis Assessment: Severe hypokalemia Gitelman Disease N/V Plan: Aggressive potassium supplement 09/07/2021: Aggressive potassium supplement (1) Abnormal ECG Assessment & Plan: He had sinus bradycardia with prolonged QT. This is most likely related to the hypokalemia. His echocardiogram from 09/06 was unremarkable. As the potassium level has been corrected, his heart rates have improved. He does not necessarily need any additional cardiac testing at this point in time. (2) Hypokalemia Status: Acute Assessment & Plan: As above, this is probably causing the abnormality on his electrocardiogram. 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 The primary hospitalist has ordered intravenous potassium. I will restart his oral magnesium and spironolactone. I would recommend he continue on telemetry until his potassium level has normalized. GERTRUDIS MARCELINO DO Sep 08, 2021 11:32
[2021-09-08 13:43] VITALS: BP 126/81
--- OUTSIDE RECORDS SUMMARY | 2021-09-09 10:44 | XMS REPORT | Clinical Summary ---
Author Author [facility] Organization [facility] Address Unknown Phone Unavailable Care Team Providers Care Requirements Manager Name Role Phone Edvin Osuna MD PCP Allergies Comments Active Allergy Reactions Severity Noted Date Adhesive Itching 10/06/2016 Latex, Natural Rubber Itching 10/06/2016 Medications Not on file Active Problems Not on file Social History Date Tobacco Use Types Packs/Day Years Used Never Assessed Sex Assigned at Date Recorded Not on file Last Filed Vital Signs Reading Time Taken Comments Vital Sign 114/72 10/06/2016 9:44 AM AUTO ADJUDICATION SPECIALIST Blood Pressure 68 10/06/2016 9:44 AM AUTO ADJUDICATION SPECIALIST Pulse 36.2 C (97.1 F) 10/06/2016 9:44 AM AUTO ADJUDICATION SPECIALIST Temperature 16 10/06/2016 9:44 AM AUTO ADJUDICATION SPECIALIST Respiratory Rate 97% 10/06/2016 9:44 AM AUTO ADJUDICATION SPECIALIST Oxygen Saturation - - Inhaled Oxygen Concentration - - Weight - - Height - - Body Mass Index Plan of Treatment Health Maintenance Due Date Last Done Comments Medicare Annual Wellness 1970 Td/Tdap# 1970 COVID-19 Vaccine (1) 1983 Colorectal Screening via 2021 Colonoscopy Zoster Vaccine# (1 of 2) 2021 Influenza Vaccine (#1) 2021 09/03/2015, 11/17/2012 Pneumococcal Vaccine: Aged Out No longer eligib le based on patient's age to Pediatrics (0 to 5 Years) complete this topic and At-Risk Patients (6 to 64 Years) Results Not on filefrom Last 3 Months Insurance Type Payer Benefit Subscriber ID Effective Phone Address Plan / Dates Group Medicare MEDICARE MEDICARE [id number] 2002-P [phone] WPS GHA PART A B resent ATTN CLAIMS DEPT [address] [place] [address] [facility] [id number] 2013-P [id number] [place] [address] [address] Personal/F Self 1970 [address] am[address] (Home) [place], [place] [address] Advance Directives For more information, please contact: [phone] 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
--- OUTSIDE RECORDS SUMMARY | 2021-09-09 10:44 | XMS REPORT | Clinical Summary ---
Author Author [facility] Organization [facility] Address Unknown Phone Unavailable Care Team Providers Care Machine Wood Sander Name Role Phone Martha Mojica MD, Taurus Jordan Unavailable Nikki Osuna MD PCP Unavailable Source Comments Some departments are not documenting in the electronic medical record. If you d o not see the information that you expected, contact Release of Information in [facility] [employer] Information Management department at [phone] for further assistan ce in locating additional records.[facility] Allergies Comments Active Allergy Reactions Severity Noted Date Latex AGITATION Low 10/22/2015 Medications End Date Status Medication Sig Dispensed Refills Start Date Active potassium chloride SR Take 200 mEq 0 (K-DUR) 10 mEq tablet by mouth daily. Active magnesium citrate oral Take 4 mL by 0 solution mouth once. Active RIVAROXABAN (XARELTO PO) Take by 0 mouth. Active Problems Problem Noted Date Hypokalemia 10/17/2016 Surgical History Surgery Date Site/Laterality Comments TUNNELED VENOUS PORT PLACEMENT Medical History Medical History Date Comments Gitelman syndrome Social History Date Tobacco Use Types Packs/Day Years Used Current Some Day Smoker Cigarettes 0.5 Smokeless Tobacco: Never Used Tobacco Cessation: Ready to Quit: No; Co unseling Given: No Comments Alcohol Use Standard Drinks/Week No 0 (1 standard drink = 0.6 o z pure alcohol) Sex Assigned at Date Recorded Not on file Last Filed Vital Signs Reading Time Taken Comments Vital Sign 108/66 10/15/2016 2:40 PM VP OF CUSTOMER EXPERIENCE STRATEGY Blood Pressure 71 10/15/2016 2:25 PM VP OF CUSTOMER EXPERIENCE STRATEGY Pulse 36.7 C (98.1 F) 10/15/2016 11:55 AM VP OF CUSTOMER EXPERIENCE STRATEGY Temperature 14 10/15/2016 10:13 AM VP OF CUSTOMER EXPERIENCE STRATEGY Respiratory Rate 96% 10/15/2016 2:25 PM VP OF CUSTOMER EXPERIENCE STRATEGY Oxygen Saturation - - Inhaled Oxygen Concentration 90.1 kg (198 lb 9.6 oz) 10/15/2016 10:13 AM VP OF CUSTOMER [employer]PERIENCE STRATEGY Weight 179.1 cm (5' 10.5") 10/15/2016 10:13 AM VP OF CUSTOMER EXPERIENCE STRATEGY Height 28.09 10/15/2016 10:13 AM VP OF CUSTOMER EXPERIENCE STRATEGY Body Mass Index Plan of Treatment Health Maintenance Due Date Last Done Comments MEDICARE ANNUAL WELLNESS 1970 VISIT HIV SCREENING 1986 DTAP/TDAP VACCINES (1 - 1989 Tdap) HEPATITIS C SCREENING 1989 PHYSICAL (COMPREHENSIVE) 1989 EXAM INFLUENZA VACCINE 05/19/2021 COLORECTAL CANCER 2021 SCREENING SHINGLES RECOMBINANT 2021 VACCINE (1 of 2) Implants Device Identifier Shelf Expiration Date Model / Serial / L ot Implanted Type Area Manufactur er [id number] 12/16/2019 [id number] / / [id number] Tray Cath Microintro 5fr Chest Wall C R BARD Implanted: Qty: 1 on 10/24/2015 by Pillo Eli MD at [facility] [id number] 10/15/2017 [id number] / . / [id number] Port Implantable 8 Float Point Unit Right: Chest C R Siom Intermediate - Sna Wall BARD:ACCES Implanted: Qty: 1 on 10/15/2016 by Ed Babb MD at [facility] Results Not on filefrom Last 3 Months Insurance Type Payer Benefit Subscriber ID Effective Phone Address Plan / Dates Group Medicare MEDICARE MEDICARE [id number] 2002-P [phone] resent [address] [place] [address] PPO [facility] [id number] 2013-P [phone] [id number] [facility] [place] [address] [phone] Advance Directives 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
== END 2021-09-08 13:40 | disposition home or self-care (01) | DRG 641 ==
LOC: EDUNIT# 18:48 → ER 18:49 → ICU 20:10 → 4TH 09-06 11:57
PROVIDERS: ADMIT Internal Medicine; ATTEND Internal Medicine
DX: E87.6 Hypokalemia (principal); N15.8 Other specified renal tubulo-interstitial diseases; R11.2 Nausea with vomiting, unspecified; R00.1 Bradycardia, unspecified; I45.81 Long QT syndrome; Z79.899 Other long term (current) drug therapy; Z91.040 Latex allergy status
CPT/HCPCS: 36415; 80048; 80053; 83735; 84100; 85007; 85025; 85027; 93005; 93306; 96361; 96374

== ENCOUNTER → 2021-12-31 | Outpatient (CLI) | payer OTHER, MEDICARE ==
[~2021-12-31] MED LIST: MAGN64TA8; POTA-51 PO; SPIR25TA5 PO
[2021-12-31 17:48] LABS: BILIRUBIN,TOTAL 0.4 MG/DL (0.1-1.0); BUN/CREATININE RATIO 9; CARBON DIOXIDE 25 MMOL/L (21-32); CHLORIDE 92 MMOL/L (98-107); CREATININE SERUM 0.76 MG/DL (0.60-1.30); GFR ESTIMATED 110; GLUCOSE 101 MG/DL (70-105); POTASSIUM 2.2 MMOL/L (3.6-5.0); SODIUM 134 MMOL/L (135-145)
[2021-12-31 17:49] LABS: ALANINE AMINOTRANSFERASE 9 U/L (0-55); ALBUMIN 4.8 GM/DL (3.2-4.5); ALKALINE PHOSPHATASE 98 U/L (40-136); TOTAL PROTEIN 8.2 GM/DL (6.4-8.2)
[2021-12-31 19:14] LABS: HEMATOCRIT 43 % (40-54); HEMOGLOBIN 15.8 g/dL (13.3-17.7); MEAN CORPUSCULAR HEMOGLOBIN 32 pg (25-34); MEAN CORPUSCULAR VOLUME 86 fL (80-99); WHITE BLOOD COUNT 11.9 10^3/uL (4.3-11.0)
[2021-12-31 19:15] LABS: BASOPHILS % (AUTO) 0 % (0-10); EOSINOPHILS % (AUTO) 3 % (0-10); LYMPHOCYTES % (AUTO) 22 % (12-44); MEAN CORPUSCULAR HGB CONC 37 g/dL (32-36); MEAN PLATELET VOLUME 10.4 fL (9.0-12.2); MONOCYTES % (AUTO) 6 % (0-12); NEUTROPHILS % (AUTO) 69 % (42-75); PLATELET COUNT 313 10^3/uL (130-400)
[2021-12-31 19:16] LABS: BASOPHILS # (AUTO) 0.1 10^3/uL (0.0-0.1); EOSINOPHILS # (AUTO) 0.3 10^3/uL (0.0-0.3); LYMPHOCYTES # (AUTO) 2.7 X 10^3 (1.0-4.0); MONOCYTES # (AUTO) 0.7 X 10^3 (0.0-1.0); NEUTROPHILS # (AUTO) 8.2 X 10^3 (1.8-7.8)
--- NOTE | 2021-12-31 19:39 | Diagnostic Imaging Report ---
CLINICAL INDICATION: Patient with lower abdominal pain after taking medication for hypokalemia. Exam: KUB x-ray. Comparison: None. Findings: There are no focal calcifications overlying the expected regions/ pathways of both kidneys, ureters, and bladder regions. There is a nonobstructed bowel gas pattern. There is no evidence of abdominal free air. There is a small amount of stool involving the right colon and rectum region. There is also small amount of stool involving the transverse colon. There are degenerative spurs involving the lumbar spine. Impression: There is no radiographic evidence for acute abdominal/ pelvic process or urinary tract stones. Dictated by: Dictated on workstation # [id number]
== END ==
LOC: LAB FS 16:58
PROVIDERS: ATTEND Nurse Practitioner Family
DX: E87.6 Hypokalemia (principal); R10.30 Lower abdominal pain, unspecified
CPT/HCPCS: 36415; 74018; 80053; 85025

== ENCOUNTER → 2022-04-09 | Outpatient (CLI) | payer OTHER, MEDICARE ==
[2022-04-09 14:30] LABS: BASOPHILS % (AUTO) 0 % (0-10); EOSINOPHILS % (AUTO) 0 % (0-10); HEMATOCRIT 40 % (40-54); LYMPHOCYTES # (AUTO) 0.4 10^3/uL (1.0-4.0); LYMPHOCYTES % (AUTO) 10 % (12-44); MEAN CORPUSCULAR HEMOGLOBIN 31 pg (25-34); MEAN CORPUSCULAR HGB CONC 37 g/dL (32-36); MEAN CORPUSCULAR VOLUME 84 fL (80-99); MEAN PLATELET VOLUME 9.6 fL (9.0-12.2); MONOCYTES # (AUTO) 0.8 10^3/uL (0.0-1.0); MONOCYTES % (AUTO) 23 % (0-12); NEUTROPHILS # (AUTO) 2.4 10^3/uL (1.8-7.8); NEUTROPHILS % (AUTO) 67 % (42-75); PLATELET COUNT 184 10^3/uL (130-400); WHITE BLOOD COUNT 3.7 10^3/uL (4.3-11.0)
[2022-04-09 14:58] LABS: SODIUM 135 MMOL/L (135-145)
[2022-04-09 15:01] LABS: BUN/CREATININE RATIO 13; CALCIUM 9.8 MG/DL (8.5-10.1); CARBON DIOXIDE 27 MMOL/L (21-32); CHLORIDE 94 MMOL/L (98-107); CREATININE SERUM 0.88 MG/DL (0.60-1.30); GFR ESTIMATED 105; GLUCOSE 122 MG/DL (70-105); POTASSIUM 2.3 MMOL/L (3.6-5.0)
[2022-04-09 15:02] LABS: ALANINE AMINOTRANSFERASE 14 U/L (0-55); ALBUMIN 4.7 GM/DL (3.2-4.5); ALKALINE PHOSPHATASE 86 U/L (40-136); BILIRUBIN,TOTAL 0.5 MG/DL (0.1-1.0); MAGNESIUM 1.7 MG/DL (1.6-2.4)
[2022-04-09 15:04] LABS: BAND NEUTROPHILS 4 %; BASOPHILS % (MANUAL) 1 %; EOSINOPHILS % (MANUAL) 0 %; LYMPHOCYTES % (MANUAL) 10 %; MONOCYTES % (MANUAL) 23 %; NEUTROPHILS % (MANUAL) 60 %
[2022-04-09 15:05] LABS: ATYPICAL LYMPHOCYTES 2 %
[2022-04-09 18:26] LABS: TRIGLYCERIDES 85 MG/DL (<150); VLDL CHOLESTEROL 17 MG/DL (5-40)
[2022-04-09 18:31] LABS: CHOLESTEROL 173 MG/DL (< 200)
[2022-04-09 18:32] LABS: HDL CHOLESTEROL 28 MG/DL (40-60)
== END ==
LOC: LAB FS 14:12
PROVIDERS: ATTEND Nurse Practitioner Family
DX: Z13.220 Encounter for screening for lipoid disorders (principal); E83.42 Hypomagnesemia; E87.6 Hypokalemia; I10 Essential (primary) hypertension
CPT/HCPCS: 36415; 80053; 80061; 83735; 85007; 85027

== ENCOUNTER 2022-04-14 13:46 | Inpatient (IN) | payer OTHER, MEDICARE ==
[~2022-04-14] VITALS: Ht 177.8 cm; Wt 77.9 kg
[2022-04-14] MEDS ORDERED: LACTATED RINGERS 1,000 ML IV ONE (15:00)
[2022-04-14] MEDS ORDERED: ONDANSETRON 4 MG/2 ML (SDV) Z0FRAN IVP ONE (15:00)
[2022-04-14 15:04] LABS: BILIRUBIN,URINE NEGATIVE (NEGATIVE); CLARITY,URINE CLEAR; COLOR,URINE YELLOW; GLUCOSE, URINE (UA) NEGATIVE (NEGATIVE); KETONES,URINE NEGATIVE (NEGATIVE); LEUKOCYTE ESTERASE ,URINE NEGATIVE (NEGATIVE); NITRITE,URINE NEGATIVE (NEGATIVE); PH,URINE 7.5 (5-9); PROTEIN,URINE 2+ (NEGATIVE)
[2022-04-14 15:06] LABS: ALBUMIN 4.6 GM/DL (3.2-4.5)
[2022-04-14 15:07] LABS: CHLORIDE 94 MMOL/L (98-107); SODIUM 130 MMOL/L (135-145)
[2022-04-14 15:08] LABS: AMYLASE 53 U/L (25-125); CALCIUM 9.4 MG/DL (8.5-10.1)
[2022-04-14 15:09] LABS: GLUCOSE 121 MG/DL (70-105); TOTAL PROTEIN 8.2 GM/DL (6.4-8.2)
[2022-04-14 15:10] LABS: CARBON DIOXIDE 22 MMOL/L (21-32)
[2022-04-14 15:11] LABS: BILIRUBIN,TOTAL 1.4 MG/DL (0.1-1.0)
[2022-04-14 15:12] LABS: ALKALINE PHOSPHATASE 78 U/L (40-136); CREATININE SERUM 0.89 MG/DL (0.60-1.30); GFR ESTIMATED 104
[2022-04-14 15:13] LABS: BUN/CREATININE RATIO 8
[2022-04-14 15:15] LABS: ALANINE AMINOTRANSFERASE 23 U/L (0-55); MAGNESIUM 1.6 MG/DL (1.6-2.4)
[2022-04-14 15:16] LABS: LIPASE 26 U/L (8-78)
--- NOTE | 2022-04-14 15:24 | ED GI ---
General Chief Complaint: Abdominal/GI Problems Stated Complaint: N/V Nursing Triage Note: C/O ABDOMINAL PAIN, N/V FOR LAST 2 DAYS. HAS BEEN TALKING TO SAAD BUTLER APRN TRYING TO MANAGE OUT PATIENT CARE. HAS ZOFRAN AT HOME AND IS TAKING BUT CONTINUES TO HAVE NAUSEA AND VOMITING. 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 Source of Information: Patient History of Present Illness Date Seen by Provider: Apr 14, 2022 Time Seen by Provider: 14:48 Initial Comments PT ARRIVES VIA POV FROM HOME C/O NAUSEA/VOMITING FOR THE LAST 2 DAYS CAN'T KEEP ANYTHING DOWN, HAS ZOFRAN AND PHENERGAN AT HOME WITHOUT IMPROVEMENT HAS GENERALIZED ABDOMINAL PAIN HAS CHRONIC DIARRHEA--WORSE FOR THE LAST 1 1/2 WEEKS NO URINARY SYMPTOMS AND VOIDING A NORMAL AMOUNT HAS HAD FEVER UP TO 100 THE LAST 2 DAYS NO RESPIRATORY SYMPTOMS NO SORE THROAT OR LOSS OF TASTE/SMELL NO HEADACHE NO BODY ACHES PT IS NOT COVID OR FLU VACCINATED PT HAS GITELMAN'S SYNDROME WITH CHRONIC POTASSIUM LOSS--IS FOLLOWED BY NEPHROLOGY. STATES HIS BASELINE POTASSIUM IS AROUND 2.5 PT HAS BEEN PRESCRIBED POTASSIUM, BUT HAS NOT BEEN ABLE TO KEEP IT DOWN PT HAS LOST AT LEAST 40 LBS IN THE LAST MONTH FOR NO KNOWN REASON, AND LOST ABOUT 15 LBS IN THE LAST MONTH PT'S ONLY PRIOR VISIT HERE WAS AUGUST 2021, FOR SAME SYMPTOMS, BUT DID NOT HAVE COVID AT THAT TIME. PCP: TARA Allergies and Home Medications Allergies Coded Allergies: adhesive tape (Verified Allergy, Unknown, 09/05/21) latex (Verified Allergy, Unknown, 09/05/21) Patient Home Medication List Home Medication List Reviewed: Yes Magnesium Chloride (Mag64) 64 Mg Tablet.er, 64 MG PO DAILY PRN for LOW MAGNESIUM DUE TO GITELMANS, (Reported) Entered as Reported by: JACKIE ZAPATA on 04/15/22 1411 Last Action: Reviewed Potassium Chloride (Potassium Chloride) 20 Meq Tablet.er, 60 MEQ PO Q4H, (Reported) Entered as Reported by: MICHELE PERLA on 09/05/21 1905 Last Action: Reviewed Promethazine HCl (Promethazine Tablet) 25 Mg Tablet, 25 MG PO Q8H PRN for PAIN- MILD (1-4), (Reported) Entered as Reported by: JACKIE ZAPATA on 04/15/221410 Last Action: Reviewed Spironolactone (Spironolactone) 50 Mg Tablet, 50 MG PO DAILY PRN for HYPOKALEMIA, (Reported) Entered as Reported by: JACKIE ZAPATA on 04/15/221410 Last Action: Reviewed Discontinued Medications Spironolactone (Spironolactone) 25 Mg Tablet, 25 MG PO DAILY Discontinued Reason: No Longer Taking Prescribed by: GERTRUDIS MARCELINO on 09/08/21 113 Last Action: Discontinued Spironolactone (Spironolactone) 25 Mg Tablet, 25 MG PO DAILY, (Reported) Discontinued Reason: No Longer Taking Entered as Reported by: JACKIE ZAPATA on 04/15/221410 Last Action: Discontinued Review of Systems Review of Systems Constitutional: see HPI, fever, malaise EENTM: No Symptoms Reported; No Nose Congestion, No Throat Pain Respiratory: No Symptoms Reported; Denies Cough Cardiovascular: No Symptoms Reported; Denies Chest Pain Gastrointestinal: See HPI, Abdominal Pain, Diarrhea, Nausea, Poor Appetite, Poor Fluid Intake, Vomiting Genitourinary: No Symptoms Reported Musculoskeletal: no symptoms reported Skin: no symptoms reported Psychiatric/Neurological: No Symptoms Reported; Denies Headache Endocrine: See HPI, Unexplaned Weight Loss Hematologic/Lymphatic: No Symptoms Reported Past Ribinfh-Sheons-Fpbnyl Hx Patient Social History Tobacco Use?: Yes Tobacco type used: Cigarettes Smoking Status: Current Everyday Smoker (1/2-1 PPD) Use of E-Cig and/or Vaping dev: No Substance use?: No Alcohol Use?: Yes Alcohol Frequency: Once in a while Pt feels they are or have been: No Immunizations Up To Date Influenza Vaccine Up-to-Date: No; Not Current First/Initial COVID19 Vaccinat: declined Past Medical History Surgery/Hospitalization HX: ch. kidney disease, low k+ ( gitelman's syndrome), multiple port placements Surgeries: Yes (MULTIPLE PORTS/CENTRAL LINES; FEEDING TUBE PLACED/LATER REMOVED) Abdominal Respiratory: No Cardiac: No Neurological: No Reproductive Disorders: No Genitourinary: Yes (GITELMAN'S SYNDROME-CHRONIC POTASSIUM LOSS) Gastrointestinal: Yes Chronic Diarrhea Musculoskeletal: No Endocrine: No HEENT: No Cancer: No Psychosocial: No Integumentary: No Blood Disorders: No Physical Exam Vital Signs Vital Signs - First Documented 04/14/22 13:55 Temp 36.3 Pulse 84 Resp 45 B/P (MAP) 142/90 (107) Pulse Ox 98 Capillary Refill : Height/Weight/BMI Height: '" Weight: lbs. oz. kg; 21.00 BMI Method: General Appearance: WD/WN, no apparent distress HEENT: PERRL/EOMI, normal ENT inspection, pharynx normal Neck: normal inspection Respiratory: normal breath sounds, no respiratory distress, no accessory muscle use Cardiovascular: regular rate, rhythm, no murmur Gastrointestinal: normal bowel sounds, soft, no organomegaly, no pulsatile mass ; No distended, No guarding, No rebound; tenderness (DIFFUSE TENDERNESS); No hernia, No mass Extremities: normal inspection, normal capillary refill Back: normal inspection Neurologic/Psychiatric: hansard reporter II-XII nml as tested, no motor/sensory deficits, alert, normal mood/affect, oriented x 3 Skin: normal color, warm/dry; No rash Progress/Results/Core Measures Results/Orders Lab Results Laboratory Tests Test 04/14/22 13:55 04/14/22 14:57 Range/Units White Blood Count 6.7 4.3-11.0 10^3/uL Red Blood Count 5.93 H 4.30-5.52 10^6/uL Hemoglobin 19.0 #H 13.3-17.7 g/dL Hematocrit 48 40-54 % Mean Corpuscular Volume 80 80-99 fL Mean Corpuscular Hemoglobin 32 25-34 pg Mean Corpuscular Hemoglobin Concent 40 H 32-36 g/dL Red Cell Distribution Width 12.3 10.0-14.5 % Platelet Count 189 130-400 10^3/uL Mean Platelet Volume 11.2 9.0-12.2 fL Immature Granulocyte % (Auto) 5 % Neutrophils (%) (Auto) 56 42-75 % Lymphocytes (%) (Auto) 25 12-44 % Monocytes (%) (Auto) 12 0-12 % Eosinophils (%) (Auto) 1 0-10 % Basophils (%) (Auto) 2 0-10 % Neutrophils # (Auto) 3.8 1.8-7.8 10^3/uL Lymphocytes # (Auto) 1.7 1.0-4.0 10^3/uL Monocytes # (Auto) 0.8 0.0-1.0 10^3/uL Eosinophils # (Auto) 0.1 0.0-0.3 10^3/uL Basophils # (Auto) 0.1 0.0-0.1 10^3/uL Immature Granulocyte # (Auto) 0.3 H 0.0-0.1 10^3/uL Percent Immature Platelet Fraction 2.7 0.0-7.6 % Sodium Level 130 L 135-145 MMOL/L Potassium Level 1.8 *L 3.6-5.0 MMOL/L Chloride Level 94 L 98-107 MMOL/L Carbon Dioxide Level 22 21-32 MMOL/L Anion Gap 14 5-14 MMOL/L Blood Urea Nitrogen 7 7-18 MG/DL Creatinine 0.89 0.60-1.30 MG/DL Estimat Glomerular Filtration Rate 104 BUN/Creatinine Ratio 8 Glucose Level 121 H 70-105 MG/DL Calcium Level 9.4 8.5-10.1 MG/DL Corrected Calcium 8.5-10.1 MG/DL Magnesium Level 1.6 1.6-2.4 MG/DL Total Bilirubin 1.4 H 0.1-1.0 MG/DL Aspartate Amino Transf (AST/SGOT) 28 5-34 U/L Alanine Aminotransferase (ALT/SGPT) 23 0-55 U/L Alkaline Phosphatase 78 40-136 U/L Troponin I < 0.028 <0.028 NG/ML B-Type Natriuretic Peptide < 10.0 <100.0 PG/ML Total Protein 8.2 6.4-8.2 GM/DL Albumin 4.6 H 3.2-4.5 GM/DL Amylase Level 53 25-125 U/L Lipase 26 8-78 U/L Influenza Type A (RT-PCR) Not Detected Not Detecte Influenza Type B (RT-PCR) Not Detected Not Detecte SARS-CoV-2 RNA (RT-PCR) Detected H Not Detecte Urine Color YELLOW Urine Clarity CLEAR Urine pH 7.5 5-9 Urine Specific [place] 1.020 1.016-1.022 Urine Protein 2+ H NEGATIVE Urine Glucose (UA) NEGATIVE NEGATIVE Urine Ketones NEGATIVE NEGATIVE Urine Nitrite NEGATIVE NEGATIVE Urine Bilirubin NEGATIVE NEGATIVE Urine Urobilinogen 0.2 < = 1.0 MG/DL Urine Leukocyte Esterase NEGATIVE NEGATIVE Urine RBC (Auto) TRACE-I H NEGATIVE Urine RBC 2-5 H /HPF Urine WBC RARE /HPF Urine Squamous Epithelial Cells 0-2 /HPF Urine Crystals NONE /LPF Urine Bacteria FEW H /HPF Urine Casts PRESENT /LPF Urine Hyaline Casts RARE /LPF Urine Mucus NEGATIVE /LPF Urine Culture Indicated YES Micro Results Microbiology 04/14/22 Urine Culture - Final, Complete NO GROWTH My Orders Orders - MEGAN ESCOBAR DO Ed Iv/Invasive Line Start (04/14/22 14:48) Ekg Tracing (04/14/22 14:48) Monitor-Rhythm Ecg Trace Only (04/14/22 14:48) Amylase (04/14/22 14:48) Bnp [place] (04/14/22 14:48) Cbc With Automated Diff (04/14/22 14:48) Comprehensive Metabolic Panel (04/14/22 14:48) Lipase (04/14/22 14:48) Magnesium (04/14/22 14:48) Ua Culture If Indicated (04/14/22 14:48) Troponin I [place] (04/14/22 14:48) Ondansetron Injection (Zofran Injectio (04/14/22 15:00) Ed Iv/Invasive Line Start (04/14/22 14:48) Lactated Ringers (Lr 1000 Ml Iv Solution (04/14/22 15:00) Covid 19 Inhouse Test (04/14/22 14:48) Influenza A And B By Pcr (04/14/22 14:48) Isolation Central Supply Req (04/14/22 14:48) Urine Culture (04/14/22 14:57) Ct Chest/Abdomen/Pelvis W (04/14/22 15:44) Ed Admission (Communication) (04/14/22 15:54) Medications Given in ED Vital Signs/I&O 04/14/22 13:55 Temp 36.3 Pulse 84 Resp 45 B/P (MAP) 142/90 (107) Pulse Ox 98 Blood Pressure Mean: 107 Progress Progress Note : Progress Note PLACED IN ISOLATION ROOM PPE WORN AT ALL TIMES COVID AND FLU TESTING DONE GIVEN IV FLUIDS AND ZOFRAN NO DETERIORATION IN PT'S CONDITION DURING ER STAY NO VOMITING OR DIARRHEA DURING ER STAY Initial ECG Impression Date: Apr 14, 2022 Initial ECG Impression Time: 14:54 Initial ECG Rate: 69 Initial ECG Rhythm: Normal Sinus Initial ECG Impression: Nonspecific Changes (FLATTENED T-WAVES) Diagnostic Imaging Comments CT CHEST/ABDOMEN/PELVIS--PER RADIOLOGIST REPORT AT 1645 FINDINGS: CT CHEST: No abnormality of the trachea. No pneumonia or edema. No suspicious pulmonary nodules. No pleural effusion or pneumothorax. Thyroid is normal. No supraclavicular or axillary lymphadenopathy. No mediastinal or hilar lymphadenopathy. Normal caliber thoracic aorta. There is noncalcified atherosclerotic plaquing resulting in mild luminal narrowing of the great vessels from the aortic arch. No central pulmonary emboli. No pericardial effusion. No worrisome focal osseous lesions. CT ABDOMEN AND PELVIS: No free intraperitoneal air or fluid. Diffuse hypoattenuation liver is most indicative of hepatic steatosis. No focal hepatic lesion. The portal vein is patent. No radiopaque gallstones or biliary dilatation. The spleen and pancreas are normal. No adrenal mass. No renal mass or obstructive uropathy. Benign subcentimeter cyst in the upper pole of the right kidney requires no dedicated followup imaging. The urinary bladder is normal. No bowel obstruction. No colitis or diverticulitis. Normal appendix. The stomach is decompressed, limiting assessment. Mesenteric arteries are widely patent. Atherosclerotic aorta without luminal narrowing. No concerning focal osseous lesion. IMPRESSION: 1. No acute intrathoracic process. 2. No acute obstructive or inflammatory process in abdomen or pelvis. Specifically, there are no features of colitis or diverticulitis to account for patient's diarrhea. Reviewed: Reviewed by Nd Departure Communication (Admissions) 1542--CALLED DR. MARCELINO, HOSPITALIST FOR [facility]. MESSAGE LEFT ON CELL. 1552--SPOKE WITH DR. MARCELINO, ACCEPTS PT FOR ADMIT. SHE WILL DO ADMIT ORDERS. Impression Primary Impression: COVID-19 virus infection Additional Impressions: WORSENED CHRONIC HYPOKALEMIA Gitelman syndrome Nausea & vomiting Chronic diarrhea Recent unexplained weight loss Disposition: ADMITTED INPATIENT Condition: Stable Admissions Decision to Admit Reason: Admit from ER (General) Decision to Admit/Date: Apr 14, 2022 Time/Decision to Admit Time: 15:55 Departure-Patient Inst. Referrals: [facility] (PCP) Primary Care Physician SAAD DAY APRN (Family) Primary Care Physician MEGAN ESCOBAR DO Apr 14, 2022 15:24
[2022-04-14 15:33] LABS: BASOPHILS # (AUTO) 0.1 10^3/uL (0.0-0.1); BASOPHILS % (AUTO) 2 % (0-10); EOSINOPHILS # (AUTO) 0.1 10^3/uL (0.0-0.3); EOSINOPHILS % (AUTO) 1 % (0-10); HEMATOCRIT 48 % (40-54); LYMPHOCYTES # (AUTO) 1.7 10^3/uL (1.0-4.0); LYMPHOCYTES % (AUTO) 25 % (12-44); MEAN CORPUSCULAR HEMOGLOBIN 32 pg (25-34); MEAN CORPUSCULAR HGB CONC 40 g/dL (32-36); MEAN CORPUSCULAR VOLUME 80 fL (80-99); MEAN PLATELET VOLUME 11.2 fL (9.0-12.2); MONOCYTES # (AUTO) 0.8 10^3/uL (0.0-1.0); MONOCYTES % (AUTO) 12 % (0-12); NEUTROPHILS # (AUTO) 3.8 10^3/uL (1.8-7.8); NEUTROPHILS % (AUTO) 56 % (42-75); PLATELET COUNT 189 10^3/uL (130-400); WHITE BLOOD COUNT 6.7 10^3/uL (4.3-11.0)
[2022-04-14 15:39] LABS: POTASSIUM 1.8 MMOL/L (3.6-5.0)
[2022-04-14 15:42] LABS: BACTERIA,URINE FEW /HPF; HYALINE CASTS, URINE RARE /LPF; SQUAMOUS EPITHELIAL CELL,UR 0-2 /HPF; WBC,URINE RARE /HPF
[2022-04-14] MEDS ORDERED: HOLD METFORMIN - RECEIVED CONTRAST 20 ML VIAL IV SCH (16:00)
[2022-04-14] MEDS ORDERED: IOHEXOL 350 MG/ML 100 ML (OMNIPAQUE 350) VIAL IV ONE (16:00)
[2022-04-14] MEDS ORDERED: NS 100 ML (IVPB) BAG IV ONE (16:00)
[2022-04-14] MEDS ORDERED: POTASSIUM CHLORIDE INJ 40 MEQ in D5 NS 1000 ML IV SOLUTION 1,000 ML IV SCH (16:30)
--- NOTE | 2022-04-14 16:36 | Diagnostic Imaging Report ---
PROCEDURE: CT chest, abdomen, and pelvis with contrast. TECHNIQUE: Multiple contiguous axial images were obtained through the chest, abdomen, and pelvis after the administration of intravenous contrast. Auto Exposure Controls were utilized during the CT exam to meet ALARA standards for radiation dose reduction. INDICATION: Nausea vomiting and abdominal pain COMPARISON: None available. FINDINGS: CT CHEST: No abnormality of the trachea. No pneumonia or edema. No suspicious pulmonary nodules. No pleural effusion or pneumothorax. Thyroid is normal. No supraclavicular or axillary lymphadenopathy. No mediastinal or hilar lymphadenopathy. Normal caliber thoracic aorta. There is noncalcified atherosclerotic plaquing resulting in mild luminal narrowing of the great vessels from the aortic arch. No central pulmonary emboli. No pericardial effusion. No worrisome focal osseous lesions. CT ABDOMEN AND PELVIS: No free intraperitoneal air or fluid. Diffuse hypoattenuation liver is most indicative of hepatic steatosis. No focal hepatic lesion. The portal vein is patent. No radiopaque gallstones or biliary dilatation. The spleen and pancreas are normal. No adrenal mass. No renal mass or obstructive uropathy. Benign subcentimeter cyst in the upper pole of the right kidney requires no dedicated followup imaging. The urinary bladder is normal. No bowel obstruction. No colitis or diverticulitis. Normal appendix. The stomach is decompressed, limiting assessment. Mesenteric arteries are widely patent. Atherosclerotic aorta without luminal narrowing. No concerning focal osseous lesion. IMPRESSION: 1. No acute intrathoracic process. 2. No acute obstructive or inflammatory process in abdomen or pelvis. Specifically, there are no features of colitis or diverticulitis to account for patient's diarrhea. Dictated by: Dictated on workstation # [id number]
[2022-04-14] MEDS ORDERED: diphenhydrAMINE 50 MG/ML INJ (BENADRYL) IVP PRN (18:30)
[2022-04-14] MEDS ORDERED: ANTACID SUSP 30 ML UDC (MYLANTA) PO PRN (18:30)
[2022-04-14] MEDS ORDERED: BISACODYL 10 MG SUPP (DULCOLAX) PR PRN (18:30)
[2022-04-14] MEDS ORDERED: MILK OF MAGNESIA 400 MG/5 ML 30 ML UDC PO PRN (18:30)
[2022-04-14] MEDS ORDERED: ONDANSETRON 4 MG (ZOFRAN) ORAL DISSOLVE TAB PO PRN (18:30)
[2022-04-14] MEDS ORDERED: polyethylene glycoL POWDER 17 GM (MIRALAX) PACK PO PRN (18:30)
[2022-04-14] MEDS ORDERED: CALCIUM CARBONATE 500 MG (TUMS) TAB.CHEW PO PRN (18:30)
[2022-04-14] MEDS ORDERED: MELATONIN 3 MG TABLET PO PRN (18:30)
[2022-04-14] MEDS ORDERED: morphine INJ 4 MG/ML 1 ML (VIAL/SYRINGE) IV PRN (18:30)
[2022-04-14] MEDS ORDERED: diphenhydrAMINE 25 MG TAB (BENADRYL) PO PRN (18:30)
[2022-04-14] MEDS ORDERED: ACETAMINOPHEN 325 MG TABLET PO PRN (18:30)
[2022-04-14] MEDS ORDERED: LACTULOSE SYRUP 10GM/15ML (ENULOSE) 30ML UDC PO PRN (18:30)
[2022-04-14] MEDS ORDERED: ONDANSETRON 4 MG/2 ML (SDV) Z0FRAN IV PRN (18:30)
[2022-04-14 18:37] VITALS: BP 128/84
--- NOTE | 2022-04-14 18:48 | History & Physical-Hospitalist ---
History of Present Illness HPI/Chief Complaint CC: Hypokalemia with COVID infection HPI: This is a 51yoWM [facility] clinic patient who has a h/o Gitelman syndrome who presents to the ER with weakness and muscle cramps and found to have severe hypokalemia of 1.8 requiring inpatient IV supplement. N/V has precluded him from taking PO supplement. COVID swab was positive. He is unvaccinated. Weight loss has been progressive the past 1 year and he is unsure why since he does eat. Source: patient Exam Limitations: no limitations Date Seen 04/14/22 Time Seen by a Provider: 18:30 Attending Physician [facility] PCP Admitting Physician: Priya Cole DO Attending Physician: Priya Cole DO Referring Physician Date of Admission Apr 14, 2022 at 15:55 Home Medications & Allergies Home Medications Reviewed patient Home Medication Reconciliation performed by pharmacy medication reconciliations nursing technician and/or nursing. Patients Allergies have been reviewed. Allergies Allergies Coded Allergies adhesive tape (Verified Allergy, Unknown, 09/05/21) latex (Verified Allergy, Unknown, 09/05/21) Past Ivhbtmh-Vrkhrk-Ffozyj Hx Patient Social History Marrital Status: single Employed/Student: unemployed Tobacco Use?: Yes Tobacco type used: Cigarettes Smoking Status: Current Everyday Smoker (1/2-1 PPD) Use of E-Cig and/or Vaping dev: No Substance use?: No Alcohol Use?: Yes Alcohol Frequency: Once in a while Pt feels they are or have been: No Immunizations Up To Date First/Initial COVID19 Vaccinat: declined Tetanus Booster (TDap): Unknown Current Status Advance Directives: No Communicates: Verbally Primary Language: Lithuanian Preferred Spoken Language: Lithuanian Past Medical History Surgeries: Abdominal Chronic Diarrhea Blood Disorders: No Review of Systems Constitutional: see HPI, dizziness, malaise, weakness, weight loss EENTM: no symptoms reported Respiratory: no symptoms reported Cardiovascular: no symptoms reported Gastrointestinal: loss of appetite, nausea, vomiting Genitourinary: decreased output Musculoskeletal: back pain Skin: no symptoms reported Psychiatric/Neurological: No Symptoms Reported All Other Systems Reviewed Negative Unless Noted: Yes Physical Exam Physical Exam Vital Signs Vital Signs - First Documented 04/14/22 04/14/22 04/14/22 13:55 18:10 20:21 Temp 36.3 Pulse 84 Resp 45 B/P (MAP) 142/90 (107) Pulse Ox 98 O2 Delivery Room Air FiO2 21 Capillary Refill : Height, Weight, BMI Height: '" Weight: lbs. oz. kg; 21.95 BMI Method: General Appearance: No Apparent Distress, Chronically ill, Thin Eyes: Right Eye Normal Inspection, Right Eye PERRL HEENT: PERRL/EOMI, Normal ENT Inspection, Pharynx Normal, Moist Mucous Membranes Neck: Full Range of Motion, Normal Inspection, Non Tender Respiratory: Chest Non Tender, Lungs Clear, Normal Breath Sounds, No Accessory Muscle Use, No Respiratory Distress Cardiovascular: Regular Rate, Rhythm, No Edema, No Gallop, No JVD, No Murmur, Normal Peripheral Pulses Gastrointestinal: Normal Bowel Sounds, No Organomegaly, No Pulsatile Mass, Non Tender, Soft Back: Normal Inspection, No CVA Tenderness, No Vertebral Tenderness Extremity: Normal Capillary Refill, Normal Inspection, Normal Range of Motion, Non Tender, No Calf Tenderness, No Pedal Edema Neurologic/Psychiatric: Alert, Oriented x3, No Motor/Sensory Deficits, Normal Mood/Affect Skin: Normal Color, Warm/Dry Lymphatic: No Adenopathy Results Results/Procedures Labs Laboratory Tests 04/14/22 13:55 Patient resulted labs reviewed. Assessment/Plan Admission Diagnosis Assessment: Severe hypokalemia Gitelman syndrome COVID + no hypoxia and CT chest normal Weight loss Smoker Unvaccinated against COVID Plan: IV supplement of K+ Isolation Monitor closely Admission Status: Inpatient Order (span 2 midnights) Reason for Inpatient Admission: hypokalemia Diagnosis/Problems Diagnosis/Problems (1) Hypokalemia Status: Acute (2) Gitelman disease Status: Acute (3) Abnormal ECG (4) COVID-19 virus infection Status: Acute (5) Recent unexplained weight loss Status: Acute (6) Nausea & vomiting Status: Acute (7) Chronic diarrhea Status: Acute PRIYA COLE DO Apr 14, 2022 18:48
[2022-04-14 19:27] VITALS: BP 125/81
[2022-04-14] MEDS: NS IV 1000 ML 1,000 ML IV SCH (19:51)
[2022-04-14] MEDS: ENOXAPARIN 40 MG/0.4 ML (LOVENOX) SYR SC SCH (19:51)
[2022-04-14] MEDS: POTASSIUM CL 10MEQ/50ML IVPB 50 ML IV SCH ×5 (19:51→23:12)
[2022-04-14 20:21] VITALS: BP 142/90
[2022-04-14] MEDS ORDERED: RT-ALBUTEROL HFA 8.5 GM INHALER IH PRN (20:30)
[2022-04-14] MEDS: SENNOSIDES 8.6 MG (SENOKOT) TAB PO SCH (21:18)
[2022-04-14] MEDS: MAGNESIUM 1 GM/100 ML IVPB 100 ML IV SCH ×2 (21:18→22:07)
[2022-04-14] MEDS: DOCUSATE SODIUM 100 MG (COLACE) CAP PO SCH (21:18)
[2022-04-14 23:14] VITALS: BP 101/63
[2022-04-15] MEDS: POTASSIUM CL 10MEQ/50ML IVPB 50 ML IV SCH ×15 (00:20→20:13)
[2022-04-15] MEDS: NS IV 1000 ML 1,000 ML IV SCH ×3 (02:27→20:19)
[2022-04-15 04:18] VITALS: BP 108/70
--- NOTE | 2022-04-15 06:01 | Progress Note - Hospitalist ---
Subjective HPI/CC On Admission Date Seen by Provider: Apr 15, 2022 Time Seen by Provider: 09:30 CC: Hypokalemia with COVID infection HPI: This is a 51yoWM [facility] clinic patient who has a h/o Gitelman syndrome who presents to the ER with weakness and muscle cramps and found to have severe hypokalemia of 1.8 requiring inpatient IV supplement. N/V has precluded him from taking PO supplement. COVID swab was positive. He is unvaccinated. Weight loss has been progressive the past 1 year and he is unsure why since he does eat. Subjective/Events-last exam Patient doing a lot better Will advance diet to regular Potassium 2.3 ordered another 120 mill equivalents of potassium Patient has chronic diarrhea Will do stool studies Malabsorption likely the cause of his weight loss Review of Systems General: Fatigue, Malaise Objective Exam Vital Signs Vital Signs Date Time Temp Pulse Resp B/P (MAP) Pulse Ox O2 Delivery O2 Flow Rate FiO2 04/15/22 20:13 36.6 60 20 104/64 (77) 99 Room Air 04/14/22 20:21 21 Capillary Refill : General Appearance: No Apparent Distress, WD/WN, Thin Respiratory: Lungs Clear, Normal Breath Sounds Cardiovascular: Regular Rate, Rhythm Neurologic/Psychiatric: Alert, Oriented x3, No Motor/Sensory Deficits, Normal Mood/Affect Results/Procedures Lab Laboratory Tests 04/15/22 06:04 Patient resulted labs reviewed. Assessment/Plan Assessment and Plan Assess & Plan/Chief Complaint Assessment: Severe hypokalemia Gitelman syndrome COVID + no hypoxia and CT chest normal Weight loss Smoker Unvaccinated against COVID Plan: IV supplement of K+ Isolation Monitor closely Stool studies Diagnosis/Problems Diagnosis/Problems (1) Hypokalemia Status: Acute (2) Gitelman disease Status: Acute (3) Abnormal ECG (4) COVID-19 virus infection Status: Acute (5) Recent unexplained weight loss Status: Acute (6) Nausea & vomiting Status: Acute (7) Chronic diarrhea Status: Acute GERTRUDIS MARCELINO DO Apr 15, 2022 06:01
[2022-04-15 06:19] LABS: ALBUMIN 3.8 GM/DL (3.2-4.5)
[2022-04-15 06:21] LABS: CALCIUM 8.5 MG/DL (8.5-10.1)
[2022-04-15 06:22] LABS: TOTAL PROTEIN 6.6 GM/DL (6.4-8.2)
[2022-04-15 06:24] LABS: BILIRUBIN,TOTAL 1.3 MG/DL (0.1-1.0)
[2022-04-15 06:25] LABS: POTASSIUM 2.3 MMOL/L (3.6-5.0)
[2022-04-15 06:26] LABS: CREATININE SERUM 0.75 MG/DL (0.60-1.30)
[2022-04-15 07:03] LABS: BASOPHILS % (AUTO) 1 % (0-10); EOSINOPHILS # (AUTO) 0.1 10^3/uL (0.0-0.3); EOSINOPHILS % (AUTO) 1 % (0-10); HEMATOCRIT 38 % (40-54); HEMOGLOBIN 14.3 g/dL (13.3-17.7); LYMPHOCYTES # (AUTO) 1.5 10^3/uL (1.0-4.0); LYMPHOCYTES % (AUTO) 40 % (12-44); MEAN CORPUSCULAR HEMOGLOBIN 31 pg (25-34); MEAN CORPUSCULAR HGB CONC 38 g/dL (32-36); MEAN CORPUSCULAR VOLUME 83 fL (80-99); MONOCYTES # (AUTO) 0.4 10^3/uL (0.0-1.0); MONOCYTES % (AUTO) 11 % (0-12); NEUTROPHILS # (AUTO) 1.8 10^3/uL (1.8-7.8); NEUTROPHILS % (AUTO) 47 % (42-75); PLATELET COUNT 106 10^3/uL (130-400); WHITE BLOOD COUNT 3.8 10^3/uL (4.3-11.0)
[2022-04-15 07:05] LABS: SMEAR SCAN COMMENT YES
[2022-04-15 08:07] VITALS: BP 90/59
[2022-04-15] MEDS: DOCUSATE SODIUM 100 MG (COLACE) CAP PO SCH ×2 (09:05→19:54)
[2022-04-15] MEDS: SENNOSIDES 8.6 MG (SENOKOT) TAB PO SCH ×2 (09:05→19:54)
[2022-04-15] MEDS ORDERED: KCL 20 MEQ TAB (K-DUR) PO ONE (09:29)
[2022-04-15] MEDS: KCL 20 MEQ TAB (K-DUR) PO SCH ×4 (09:36→23:42)
[2022-04-15 11:37] VITALS: BP 113/74
[2022-04-15] MEDS ORDERED: MAGN64TA8 PO (14:11)
[2022-04-15] MEDS ORDERED: SPIR50TA4 PO (14:11)
[2022-04-15] MEDS ORDERED: PROM25TA14 PO (14:11)
[2022-04-15] MEDS ORDERED: SPIR25TA5 PO (14:11)
[2022-04-15 16:00] VITALS: BP 100/65
[2022-04-15] MEDS: ENOXAPARIN 40 MG/0.4 ML (LOVENOX) SYR SC SCH (18:08)
[2022-04-15 20:13] VITALS: BP 104/64
[2022-04-15 23:43] VITALS: BP 101/63
[2022-04-16 03:15] VITALS: BP 102/60
[2022-04-16] MEDS: KCL 20 MEQ TAB (K-DUR) PO SCH ×6 (03:19→23:21)
--- NOTE | 2022-04-16 06:02 | Progress Note - Hospitalist ---
Subjective HPI/CC On Admission Date Seen by Provider: Apr 16, 2022 Time Seen by Provider: 09:00 CC: Hypokalemia with COVID infection HPI: This is a 51yoWM [facility] clinic patient who has a h/o Gitelman syndrome who presents to the ER with weakness and muscle cramps and found to have severe hypokalemia of 1.8 requiring inpatient IV supplement. N/V has precluded him from taking PO supplement. COVID swab was positive. He is unvaccinated. Weight loss has been progressive the past 1 year and he is unsure why since he does eat. Subjective/Events-last exam Pt is asleep now Potassium was 2.3 getting another 120 mEq IV Overall doing pretty well Not hypoxic from Covid Review of Systems General: Fatigue, Malaise Objective Exam Vital Signs Vital Signs Date Time Temp Pulse Resp B/P (MAP) Pulse Ox O2 Delivery O2 Flow Rate FiO2 04/16/22 19:00 49 04/16/22 16:00 35.9 18 96/64 (75) 100 Room Air 04/14/22 20:21 21 Capillary Refill : General Appearance: No Apparent Distress, WD/WN, Chronically ill Respiratory: Lungs Clear, Normal Breath Sounds Neurologic/Psychiatric: Alert, Oriented x3, No Motor/Sensory Deficits, Normal Mood/Affect Results/Procedures Lab Laboratory Tests 04/16/22 05:59 Patient resulted labs reviewed. Assessment/Plan Assessment and Plan Assess & Plan/Chief Complaint Assessment: Severe hypokalemia Gitelman syndrome COVID + no hypoxia and CT chest normal Weight loss Smoker Unvaccinated against COVID Plan: IV supplement of K+ Isolation Monitor closely Stool studies Diagnosis/Problems Diagnosis/Problems (1) Hypokalemia Status: Acute (2) Gitelman disease Status: Acute (3) Abnormal ECG (4) COVID-19 virus infection Status: Acute (5) Recent unexplained weight loss Status: Acute (6) Nausea & vomiting Status: Acute (7) Chronic diarrhea Status: Acute GERTRUDIS MARCELINO DO Apr 16, 2022 06:02
[2022-04-16 06:12] LABS: BASOPHILS % (AUTO) 0 % (0-10); HEMOGLOBIN 13.1 g/dL (13.3-17.7); MEAN CORPUSCULAR VOLUME 83 fL (80-99)
[2022-04-16 06:14] LABS: EOSINOPHILS # (AUTO) 0.1 10^3/uL (0.0-0.3); EOSINOPHILS % (AUTO) 2 % (0-10); HEMATOCRIT 35 % (40-54); LYMPHOCYTES # (AUTO) 1.5 10^3/uL (1.0-4.0); LYMPHOCYTES % (AUTO) 46 % (12-44); MEAN CORPUSCULAR HEMOGLOBIN 32 pg (25-34); MEAN CORPUSCULAR HGB CONC 38 g/dL (32-36); MEAN PLATELET VOLUME 11.8 fL (9.0-12.2); MONOCYTES # (AUTO) 0.3 10^3/uL (0.0-1.0); MONOCYTES % (AUTO) 9 % (0-12); NEUTROPHILS # (AUTO) 1.4 10^3/uL (1.8-7.8); NEUTROPHILS % (AUTO) 43 % (42-75); PLATELET COUNT 80 10^3/uL (130-400); WHITE BLOOD COUNT 3.4 10^3/uL (4.3-11.0)
[2022-04-16 06:21] LABS: ALBUMIN 3.8 GM/DL (3.2-4.5); POTASSIUM 2.6 MMOL/L (3.6-5.0)
[2022-04-16 06:22] LABS: CALCIUM 8.3 MG/DL (8.5-10.1)
[2022-04-16 06:23] LABS: TOTAL PROTEIN 6.3 GM/DL (6.4-8.2)
[2022-04-16 06:25] LABS: BILIRUBIN,TOTAL 0.9 MG/DL (0.1-1.0)
[2022-04-16 06:27] LABS: CREATININE SERUM 0.7 MG/DL (0.60-1.30)
[2022-04-16 06:29] LABS: SMEAR SCAN COMMENT YES
[2022-04-16 06:30] LABS: MAGNESIUM 1.8 MG/DL (1.6-2.4)
[2022-04-16] MEDS: POTASSIUM CL 10MEQ/50ML IVPB 50 ML IV SCH ×7 (07:06→17:38)
[2022-04-16 08:05] VITALS: BP 105/70
[2022-04-16] MEDS: DOCUSATE SODIUM 100 MG (COLACE) CAP PO SCH ×2 (08:15→19:45)
[2022-04-16] MEDS: SENNOSIDES 8.6 MG (SENOKOT) TAB PO SCH ×2 (08:15→19:45)
[2022-04-16] MEDS: NS IV 1000 ML 1,000 ML IV SCH ×3 (09:02→23:48)
[2022-04-16 11:50] VITALS: BP 91/62
[2022-04-16 16:00] VITALS: BP 96/64
[2022-04-16] MEDS: ENOXAPARIN 40 MG/0.4 ML (LOVENOX) SYR SC SCH (17:37)
[2022-04-16 20:36] VITALS: BP 91/63
[2022-04-16 23:21] VITALS: BP 105/65
[2022-04-17] MEDS: KCL 20 MEQ TAB (K-DUR) PO SCH ×4 (04:11→15:18)
[2022-04-17 04:12] VITALS: BP 106/63
--- NOTE | 2022-04-17 06:01 | Progress Note - Hospitalist ---
Subjective HPI/CC On Admission Date Seen by Provider: Apr 17, 2022 Time Seen by Provider: 11:30 CC: Hypokalemia with COVID infection HPI: This is a 51yoWM [facility] clinic patient who has a h/o Gitelman syndrome who presents to the ER with weakness and muscle cramps and found to have severe hypokalemia of 1.8 requiring inpatient IV supplement. N/V has precluded him from taking PO supplement. COVID swab was positive. He is unvaccinated. Weight loss has been progressive the past 1 year and he is unsure why since he does eat. Objective Exam Vital Signs Vital Signs Date Time Temp Pulse Resp B/P (MAP) Pulse Ox O2 Delivery O2 Flow Rate FiO2 04/17/22 15:47 36.8 49 16 116/65 (82) 100 Room Air 04/14/22 20:21 21 Capillary Refill : Results/Procedures Lab Laboratory Tests 04/17/22 05:51 Patient resulted labs reviewed. Assessment/Plan Assessment and Plan Assess & Plan/Chief Complaint Assessment: Severe hypokalemia Gitelman syndrome COVID + no hypoxia and CT chest normal Weight loss Smoker Unvaccinated against COVID Plan: IV supplement of K+ Isolation Monitor closely Stool studies Diagnosis/Problems Diagnosis/Problems (1) Hypokalemia Status: Acute (2) Gitelman disease Status: Acute (3) Abnormal ECG (4) COVID-19 virus infection Status: Acute (5) Recent unexplained weight loss Status: Acute (6) Nausea & vomiting Status: Acute (7) Chronic diarrhea Status: Acute GERTRUDIS MARCELINO DO Apr 17, 2022 06:01
[2022-04-17 06:07] LABS: BASOPHILS % (AUTO) 0 % (0-10); EOSINOPHILS # (AUTO) 0.1 10^3/uL (0.0-0.3); EOSINOPHILS % (AUTO) 3 % (0-10); HEMATOCRIT 34 % (40-54); WHITE BLOOD COUNT 3.3 10^3/uL (4.3-11.0)
[2022-04-17 06:10] LABS: HEMOGLOBIN 12.3 g/dL (13.3-17.7); LYMPHOCYTES # (AUTO) 1.6 10^3/uL (1.0-4.0); LYMPHOCYTES % (AUTO) 49 % (12-44); MEAN CORPUSCULAR HEMOGLOBIN 31 pg (25-34); MEAN CORPUSCULAR HGB CONC 37 g/dL (32-36); MEAN CORPUSCULAR VOLUME 86 fL (80-99); MEAN PLATELET VOLUME 12.1 fL (9.0-12.2); MONOCYTES # (AUTO) 0.3 10^3/uL (0.0-1.0); MONOCYTES % (AUTO) 8 % (0-12); NEUTROPHILS # (AUTO) 1.3 10^3/uL (1.8-7.8); NEUTROPHILS % (AUTO) 40 % (42-75); PLATELET COUNT 85 10^3/uL (130-400)
[2022-04-17 06:25] LABS: ALBUMIN 3.5 GM/DL (3.2-4.5); POTASSIUM 2.9 MMOL/L (3.6-5.0)
[2022-04-17 06:26] LABS: CALCIUM 8.3 MG/DL (8.5-10.1)
[2022-04-17 06:27] LABS: TOTAL PROTEIN 5.8 GM/DL (6.4-8.2)
[2022-04-17 06:29] LABS: BILIRUBIN,TOTAL 0.7 MG/DL (0.1-1.0)
[2022-04-17 06:31] LABS: CREATININE SERUM 0.61 MG/DL (0.60-1.30)
[2022-04-17] MEDS: POTASSIUM CL 10MEQ/50ML IVPB 50 ML IV SCH ×7 (07:01→15:18)
[2022-04-17 08:13] VITALS: BP 100/65
[2022-04-17] MEDS: DOCUSATE SODIUM 100 MG (COLACE) CAP PO SCH (08:38)
[2022-04-17] MEDS: SENNOSIDES 8.6 MG (SENOKOT) TAB PO SCH (08:38)
[2022-04-17] MEDS: NS IV 1000 ML 1,000 ML IV SCH (11:05)
[2022-04-17 11:35] VITALS: BP 111/72
[2022-04-17 15:47] VITALS: BP 116/65
--- NOTE | 2022-04-17 20:45 | Discharge Summary ---
Discharge Summary Hospital Course Was the Problem List Reviewed?: Yes Problems/Dx: (1) Hypokalemia Status: Acute (2) Gitelman disease Status: Acute (3) Abnormal ECG (4) COVID-19 virus infection Status: Acute (5) Recent unexplained weight loss Status: Acute (6) Nausea & vomiting Status: Acute (7) Chronic diarrhea Status: Acute Hospital Course Date of Admission: Apr 14, 2022 at 15:55 Admission Diagnosis : Family Physician/Provider: Elba Arce Aprn Date of Discharge: 04/17/22 Discharge Diagnosis: hypokalemia, COVID Hospital Course: Pt had an uneventful hospital course for 4 days before leaving AM. he was found to have magnesium of 1.8 due to potassium wasting disorder. He ultimately received potassium IV 120 mEq daily. Potassium was 2.9 prior to discharge. Weight loss was pursued. CT scan showed no abnormality. He had a decreased appetite. Pt has chronic diarrhea, likely malabsorption. He decided to leave [place]. Labs and Pending Lab Test: Laboratory Tests 04/17/22 05:51: White Blood Count 3.3L, Red Blood Count 3.92L, Hemoglobin 12.3L, Hematocrit 34L, Mean Corpuscular Volume 86, Mean Corpuscular Hemoglobin 31, Mean Corpuscular Hemoglobin Concent 37H, Red Cell Distribution Width 12.4, Platelet Count 85L, Mean Platelet Volume 12.1, Immature Granulocyte % (Auto) 0, Neutrophils (%) (Auto) 40L, Lymphocytes (%) (Auto) 49H, Monocytes (%) (Auto) 8, Eosinophils (%) (Auto) 3, Basophils (%) (Auto) 0, Neutrophils # (Auto) 1.3L, Lymphocytes # (Auto) 1.6, Monocytes # (Auto) 0.3, Eosinophils # (Auto) 0.1, Basophils # (Auto) 0.0, Immature Granulocyte # (Auto) 0.0, Percent Immature Platelet Fraction 10.1H , Sodium Level 132L, Potassium Level 2.9L, Chloride Level 102, Carbon Dioxide Level 21, Anion Gap 9, Blood Urea Nitrogen 3L, Creatinine 0.61, Estimat Glomerular Filtration Rate 117, BUN/Creatinine Ratio 5, Glucose Level 89, Calcium Level 8.3L, Corrected Calcium 8.7, Total Bilirubin 0.7, Aspartate Amino Transf (AST/SGOT) 27, Alanine Aminotransferase (ALT/SGPT) 26, Alkaline Phosphatase 55, Total Protein 5.8L, Albumin 3.5 Microbiology 04/14/22 Urine Culture - Final, Complete NO GROWTH Home Meds Active Reported Mag64 (Magnesium Chloride) 64 Mg Tablet.er 64 Mg PO DAILY PRN Spironolactone 50 Mg Tablet 50 Mg PO DAILY PRN Promethazine Tablet (Promethazine HCl) 25 Mg Tablet 25 Mg PO Q8H PRN Potassium Chloride 20 Meq Tablet.er 60 Meq PO Q4H TAKES 3 (20MEQ) TABLETS Assessment/Pt Instructions left ama Discharge Planning: <30 minutes discharge planning Discharge Physical Examination Vital Signs Vital Signs Date Time Temp Pulse Resp B/P (MAP) Pulse Ox O2 Delivery O2 Flow Rate FiO2 04/17/22 15:47 36.8 49 16 116/65 (82) 100 Room Air 04/14/22 20:21 21 Allergies: Coded Allergies: adhesive tape (Verified Allergy, Unknown, 09/05/21) latex (Verified Allergy, Unknown, 09/05/21) Discharge Summary Date of Admission Apr 14, 2022 at 15:55 Date of Discharge Apr 17, 2022 at 16:55 Admission Diagnosis Assessment: Severe hypokalemia Gitelman syndrome COVID + no hypoxia and CT chest normal Weight loss Smoker Unvaccinated against COVID Plan: IV supplement of K+ Isolation Monitor closely Discharge Diagnosis Assessment: Severe hypokalemia Gitelman syndrome COVID + no hypoxia and CT chest normal Weight loss Smoker Unvaccinated against COVID Plan: IV supplement of K+ Isolation Monitor closely Stool studies (1) Hypokalemia Status: Acute (2) Gitelman disease Status: Acute (3) Abnormal ECG (4) COVID-19 virus infection Status: Acute (5) Recent unexplained weight loss Status: Acute (6) Nausea & vomiting Status: Acute (7) Chronic diarrhea Status: Acute GERTRUDIS MARCELINO DO Apr 17, 2022 20:45
== END 2022-04-17 16:55 | disposition left against medical advice (07) | DRG 640 ==
LOC: EDUNIT# 13:46 → ER 13:49 → 4TH 15:55
PROVIDERS: ADMIT Internal Medicine; ATTEND Internal Medicine
PROC: 8E0ZXY6 Isolation (ICD-10-PCS; principal; 2022-04-14)
DX: E87.6 Hypokalemia (principal); U07.1 COVID-19; N15.8 Other specified renal tubulo-interstitial diseases; Z28.310 Unvaccinated for COVID-19; Z28.9 Immunization not carried out for unspecified reason; R63.4 Abnormal weight loss; F17.210 Nicotine dependence, cigarettes, uncomplicated
CPT/HCPCS: 36415; 71260; 74177; 80053; 81000; 82150; 83690; 83735; 83880; 84484; 85025; 87088; 87636; 93005; 93041